=== PATIENT | female | born 1935 | race Caucasian/White ===

== ENCOUNTER 2016-03-07 05:09 | Emergency (ER) | payer OTHER ==
[~2016-03-07] VITALS: Ht 152.4 cm; Wt 70.4 kg
[~2016-03-07 05:09] MED LIST: 3-DAY VAGINAL C21 GM VG; ALEVE220 MG PO; AMBIEN5 MG PO; ANUSOL HC,ANUCO25 MG PR; ARTANE2 MG PO; ATENOLOL100 MG PO; ATENOLOL50 MG PO; Apresoline PO; Ascorbic Acid,Ester- PO; BUSPAR7.5 MG PO; CALTRATE 6001 TABLET PO; CALTRATE 600600 MG PO; CIPRO500 MG PO; COUMADIN,JANTO2.5 MG PO; CRANBERRY250 MG PO; CRANBERRY400 M1 PO; Calcium Carbonate,Ca PO; Ceftin PO; Colace PO; Coumadin dosing per PO; DIAZEPAM5 MG PO; DIOVAN HCT 11 TABLET PO; DONNATAL1 TABLET PO; DURAGESIC12 MCG TD; DURAGESIC25 MCG TD; Diovan HCT 160/12.5 PO; Dulcolax PR; EFFEXOR XR150 MG PO; ENABLEX15 MG PO; ENDOCET 5-3251 EACH PO; ENDOCET 7.5-321 EACH PO; ESTRING1 EACH VG; Effexor XR PO; FEMRING1 EACH VG; FLAGYL500 MG PO; FLEXERIL10 MG PO; FLEXERIL5 MG PO; FLONASE16 G1; FLONASE16 G1 BOTH NARES; FLONASE16 GM NS; FUROSEMIDE20 MG PO; Feosol PO; Flonase BOTH NARES; IMITREX NS; IMITREX100 MG PO; IMITREX20 MG NS; IMITREX5 MG NS; IMITREX50 MG PO; Imitrex SC; K-Dur PO; KLOR-CON20 MEQ PO; LEVO-T137 MCG PO; LEVOTHROID,SY0.15 MG PO; LEVOXYL150 MCG PO; LOPRESSOR50 MG PO; LORTAB 10/500 T1 TAB PO; LOVENOX40 MG/0.4 SC; Levothroid,Synthroid PO; METOPROLOL SUCC50 MG PO; MEVACOR40 MG PO; MYSOLINE250 MG PO; MYSOLINE50 MG; Magnesium PO; Milk Of Magnesia,MOM PO; NORVASC10 MG PO; Norvasc PO; OMEPRAZOLE20 M2 PO; OXYCODONE HCL15 MG PO; PANTOPRAZOLE SO40 MG PO; PEPCID40 MG PO; PERCOCET 10/1 TABLET PO; PERCOCET 5/31 TABLET PO; PERCOCET 7.51 TABLET PO; PHENERGAN12.5 M1 PO; POTASSIUM CHLO20 ME1 PO; PRIMIDONE250 MG PO; PROAIR HFA8.5 GM IH; PROTONIX40 MG PO; Proair HFA IH; REGLAN10 M1 PO; REGLAN10 MG PO; REMERON15 M2 PO; REQUIP0.25 MG PO; Reglan PO; SENOKOT S,PE1 TABLET PO; SIMVASTATIN20 MG PO; SKELAXIN400 M1 PO; SPIRIVA1 INHALATI IH; SUMATRIPTAN20 MG NS; SYMBICORT60 INHALAT IH; SYNTHROID150 MCG PO; Sodium Chloride PO; Symbicort 160-4.5 mc IH; TENORMIN100 M1 PO; TENORMIN100 MG PO; TENORMIN50 MG PO; TIZANIDINE HCL2 M1 PO; TIZANIDINE HCL2 MG PO; TRAMADOL HCL50 MG PO; Tenormin PO; Tylenol Regular Stre PO; VALIUM5 MG PO; VANCOMYCIN250 MG/2.5 PO; VENLAFAXINE HC150 MG PO; VITAMIN D2000 UNIT PO; VITAMIN D250000 UNIT PO; VITAMIN D31000 UNIT PO; VITAMIN D32000 UNIT PO; ZOFRAN ODT4 MG PO; ZOFRAN4 MG PO; Zocor PO; [UNRECOGNIZED DRUG - OTHER] NS
[2016-03-07 05:41] LABS: HEMATOCRIT 32.4 % (36.0-46.0); MCH 31.1 PG (29.0-34.0); MCHC 33.6 G/DL (30.0-36.0); MCV 92.6 FL (83-99); MEAN PLAT.VOLUME 9.1 uM^3 (9.5-12.4); PLATELET COUNT 215 K/uL (156-360); RBC DIS.WIDTH-CV 15.2 % (11.8-14.6); RBC DIS.WIDTH-SD 49.6 % (39-53); WHITE BLOOD COUNT 5.1 K/uL (4.1-10.2)
[2016-03-07 05:51] LABS: CHLORIDE 99 mEq/L (99-109); SODIUM 136 mEq/L (136-147)
[2016-03-07 05:53] LABS: GLUCOSE 93 mg/dL (70-99)
[2016-03-07 05:54] LABS: ANION GAP 11 MEQ/L (2-14)
[2016-03-07 05:57] LABS: GFR ESTIMATE (CALCULATED) 36 mL/min/
[2016-03-07 05:58] LABS: UREA NITROGEN (BUN) 20 mg/dL (9-23)
[2016-03-07 10:06] VITALS: BP 152/87
== END 2016-03-07 09:30 | disposition home or self-care (01) ==
LOC: EME → EDBD 05:09 → EME 05:09
PROVIDERS: Emergency Medicine
DX: S09.90XA Unspecified injury of head, initial encounter (principal); R10.9 Unspecified abdominal pain; R53.1 Weakness; W18.30XA Fall on same level, unspecified, initial encounter; N39.0 Urinary tract infection, site not specified; J44.1 Chronic obstructive pulmonary disease with (acute) exacerbation; E78.5 Hyperlipidemia, unspecified; E03.9 Hypothyroidism, unspecified; G43.909 Migraine, unspecified, not intractable, without status migrainosus; Z79.891 Long term (current) use of opiate analgesic; Z87.891 Personal history of nicotine dependence; Z96.653 Presence of artificial knee joint, bilateral
CPT/HCPCS: 70450; 74176; 80048; 81003; 85027; 87086; 99281; 99285; J7030

== ENCOUNTER 2016-03-14 13:25 | Inpatient (IN) | payer OTHER ==
[~2016-03-14] VITALS: Ht 182.9 cm; Wt 67.4 kg
[2016-03-14 15:15] LABS: HEMATOCRIT 33.1 % (36.0-46.0); MCH 32.7 PG (29.0-34.0); MCHC 33.8 G/DL (30.0-36.0); MCV 96.5 FL (83-99); MEAN PLAT.VOLUME 8.6 uM^3 (9.5-12.4); PLATELET COUNT 236 K/uL (156-360); RBC DIS.WIDTH-CV 15.6 % (11.8-14.6); RBC DIS.WIDTH-SD 51.4 % (39-53); RED BLOOD COUNT 3.43 M/uL (3.80-5.20); WHITE BLOOD COUNT 7.1 K/uL (4.1-10.2)
[2016-03-14 15:20] LABS: INTER. NORMALIZED RATIO 1.2; PTT 24.5 (25-32)
[2016-03-14 15:21] LABS: CHLORIDE 103 mEq/L (99-109); POTASSIUM 3.9 mEq/L (3.7-5.4); SODIUM 139 mEq/L (136-147)
[2016-03-14 15:23] LABS: GLUCOSE 118 mg/dL (70-99)
[2016-03-14 15:24] LABS: ANION GAP 11 MEQ/L (2-14)
[2016-03-14 15:27] LABS: GFR ESTIMATE (CALCULATED) 51 mL/min/
[2016-03-14 15:28] LABS: UREA NITROGEN (BUN) 22 mg/dL (9-23)
[2016-03-14 15:35] LABS: TROP-I INTERPRETATION POSITIVE
[2016-03-14 15:40] LABS: TROPONIN-I 1.04 ng/mL (0.0-0.30)
[2016-03-14] MEDS ORDERED: SPIRIVA1 INHALATI IH (17:15)
[2016-03-14] MEDS ORDERED: BACTRIM,SEPT1 TABLET PO (17:16)
[2016-03-14 18:12] LABS: ADD MIUA? YES; BILIRUBIN NEGATIVE; BLOOD NEGATIVE; COLOR YELLOW ((YELLOW)); GLUCOSE (STRIP) NEGATIVE; KETONES NEGATIVE; LEUKOCYTES TRACE; NITRITE NEGATIVE; PROTEIN (STRIP) NEGATIVE; SPECIFIC GRAVITY 1.013 (1.000-1.030); UROBILINOGEN 0.2 MG/DL (0.2-1.0)
[2016-03-14 18:36] LABS: BACTERIA NONE SEEN; CASTS NONE SEEN /LPF; CRYSTALS NONE SEEN; EPITHELIAL CELLS 1+; MUCUS NONE SEEN; PATHOLOGICAL CAST NONE SEEN; RED BLOOD CELLS 0-5 /HPF (0-5); SMALL ROUND CELL NONE SEEN; UCUL ADDED? NO; WHITE BLOOD CELLS 0-5 /HPF (0-5); YEAST-LIKE CELL NONE SEEN
[2016-03-14 22:57] LABS: TROP-I INTERPRETATION POSITIVE
[2016-03-14 22:58] LABS: TROPONIN-I 1.59 ng/mL (0.0-0.30)
[2016-03-15 04:59] LABS: TROP-I INTERPRETATION POSITIVE
[2016-03-15 05:01] LABS: TROPONIN-I 1.11 ng/mL (0.0-0.30)
[2016-03-15 06:36] LABS: HEMATOCRIT 34.6 % (36.0-46.0); MCH 31.3 PG (29.0-34.0); MCHC 33.2 G/DL (30.0-36.0); MEAN PLAT.VOLUME 8.7 uM^3 (9.5-12.4); PLATELET COUNT 267 K/uL (156-360); RBC DIS.WIDTH-CV 15.7 % (11.8-14.6); RBC DIS.WIDTH-SD 52.3 % (39-53); RED BLOOD COUNT 3.68 M/uL (3.80-5.20); WHITE BLOOD COUNT 6.3 K/uL (4.1-10.2)
[2016-03-15 06:47] LABS: CHLORIDE 108 mEq/L (99-109); POTASSIUM 4.3 mEq/L (3.7-5.4); SODIUM 141 mEq/L (136-147)
[2016-03-15 06:51] LABS: ANION GAP 11 MEQ/L (2-14)
[2016-03-15 06:52] LABS: TOTAL BILIRUBIN 0.3 mg/dL (0.0-1.0)
[2016-03-15 06:53] LABS: ALKALINE PHOSPHATASE 173 IU/L (3-129); GFR ESTIMATE (CALCULATED) > 59 mL/min/
[2016-03-15 06:54] LABS: UREA NITROGEN (BUN) 18 mg/dL (9-23)
[2016-03-15 06:57] LABS: GLUCOSE 84 mg/dL (70-99)
[2016-03-15 13:08] LABS: TROP-I INTERPRETATION POSITIVE
[2016-03-15 13:11] LABS: TROPONIN-I 0.79 ng/mL (0.0-0.30)
[2016-03-15 14:44] VITALS: BP 125/64
[2016-03-15 19:11] LABS: TROP-I INTERPRETATION INDETERMINATE; TROPONIN-I 0.52 ng/mL (0.0-0.30)
[2016-03-15 19:30] VITALS: BP 124/70
[2016-03-16] VITALS (7 sets, daily range): BP systolic 138–196; BP diastolic 70–96
[2016-03-16 11:02] LABS: ALKALINE PHOSPHATASE 163 IU/L (3-129); ANION GAP 16 MEQ/L (2-14); CHLORIDE 100 MEQ/L (99-109); GFR ESTIMATE (CALCULATED) > 59 mL/min/; SAMPLE HEMOLYSIS CHECK 0; SAMPLE ICTERIC CHECK 0; SAMPLE LIPEMIA CHECK 0; SODIUM 138 MEQ/L (136-147); TOTAL BILIRUBIN 0.6 MG/DL (0.0-1.0); UREA NITROGEN (BUN) 12 mg/dL (9-23)
[2016-03-16 11:03] LABS: GLUCOSE 140 mg/dL (70-99); POTASSIUM 3.3 MEQ/L (3.7-5.4)
[2016-03-17] VITALS (7 sets, daily range): BP systolic 134–190; BP diastolic 80–98
[2016-03-17 06:39] LABS: TROP-I INTERPRETATION NEGATIVE; TROPONIN-I 0.19 ng/mL (0.0-0.30)
[2016-03-17 06:59] LABS: ALKALINE PHOSPHATASE 158 IU/L (3-129); ANION GAP 14 MEQ/L (2-14); CHLORIDE 91 MEQ/L (99-109); GFR ESTIMATE (CALCULATED) > 59 mL/min/; GLUCOSE 135 mg/dL (70-99); LIPASE 10 U/L (1.0-51.0); POTASSIUM 3.1 MEQ/L (3.7-5.4); SAMPLE HEMOLYSIS CHECK 0; SAMPLE ICTERIC CHECK 0; SAMPLE LIPEMIA CHECK 0; SODIUM 134 MEQ/L (136-147); UREA NITROGEN (BUN) 9 mg/dL (9-23)
[2016-03-17 07:16] LABS: TOTAL BILIRUBIN 0.8 MG/DL (0.0-1.0)
[2016-03-17 07:48] LABS: EOSINOPHIL (%) 0 % (0-5); HEMATOCRIT 38.1 % (36.0-46.0); IMMATURE GRANULOCYTE (%) 0.2 % (0.0-0.7); LYMPHOCYTE COUNT 1.4 K/uL (1.0-2.8); MCH 31.4 PG (29.0-34.0); MCHC 34.6 G/DL (30.0-36.0); MCV 90.7 FL (83-99); MONOCYTE (%) 10.6 % (3-12); NEUTROPHIL COUNT 6.9 K/uL (1.8-6.4); PLATELET COUNT 233 K/uL (156-360); RBC DIS.WIDTH-CV 15.6 % (11.8-14.6); RBC DIS.WIDTH-SD 51.1 % (39-53)
[2016-03-17 07:51] LABS: WHITE BLOOD COUNT 9.3 K/uL (4.1-10.2)
[2016-03-17 09:21] LABS: MAGNESIUM 1.1 mg/dl (1.3-2.7)
[2016-03-17 18:58] LABS: ANION GAP 13 MEQ/L (2-14); CHLORIDE 95 MEQ/L (99-109); POTASSIUM 2.9 MEQ/L (3.7-5.4); SAMPLE HEMOLYSIS CHECK 0; SAMPLE ICTERIC CHECK 0; SAMPLE LIPEMIA CHECK 0; SODIUM 133 MEQ/L (136-147)
[2016-03-17 19:03] LABS: GFR ESTIMATE (CALCULATED) > 59 mL/min/; GLUCOSE 138 mg/dL (70-99); UREA NITROGEN (BUN) 12 mg/dL (9-23)
[2016-03-18 04:56] LABS: CHLORIDE 102 mEq/L (99-109); MAGNESIUM 1.4 mg/dL (1.3-2.7); SODIUM 136 mEq/L (136-147)
[2016-03-18 04:57] LABS: GLUCOSE 121 mg/dL (70-99); POTASSIUM 4.1 mEq/L (3.7-5.4)
[2016-03-18 04:59] LABS: ANION GAP 10 MEQ/L (2-14)
[2016-03-18 05:01] LABS: GFR ESTIMATE (CALCULATED) > 59 mL/min/
[2016-03-18 05:02] LABS: UREA NITROGEN (BUN) 11 mg/dL (9-23)
[2016-03-18 08:00] VITALS: BP 191/93
[2016-03-18 12:00] VITALS: BP 181/110
[2016-03-18 14:25] LABS: POINT-OF-CARE METER ID UU13113781
[2016-03-18 15:03] LABS: ANION GAP 12 MEQ/L (2-14); CHLORIDE 99 MEQ/L (99-109); GFR ESTIMATE (CALCULATED) > 59 mL/min/; GLUCOSE 149 mg/dL (70-99); SAMPLE HEMOLYSIS CHECK 0; SAMPLE ICTERIC CHECK 0; SAMPLE LIPEMIA CHECK 0; SODIUM 133 MEQ/L (136-147); UREA NITROGEN (BUN) 10 mg/dL (9-23)
[2016-03-18 15:06] LABS: TROP-I INTERPRETATION NEGATIVE; TROPONIN-I 0.09 ng/mL (0.0-0.30)
[2016-03-18 16:30] VITALS: BP 186/90
[2016-03-18 19:29] VITALS: BP 173/98
[2016-03-18 22:54] VITALS: BP 198/97
[2016-03-19] VITALS (9 sets, daily range): BP systolic 157–185; BP diastolic 84–105
[2016-03-19 06:39] LABS: ANION GAP 12 MEQ/L (2-14); CHLORIDE 93 MEQ/L (99-109); GFR ESTIMATE (CALCULATED) > 59 mL/min/; POTASSIUM 3.4 MEQ/L (3.7-5.4); SAMPLE HEMOLYSIS CHECK 0; SAMPLE ICTERIC CHECK 0; SAMPLE LIPEMIA CHECK 0; SODIUM 131 MEQ/L (136-147); UREA NITROGEN (BUN) 7 mg/dL (9-23)
[2016-03-19 06:42] LABS: GLUCOSE 108 mg/dL (70-99)
[2016-03-20] VITALS (7 sets, daily range): BP systolic 161–192; BP diastolic 84–103
[2016-03-20 07:04] LABS: ANION GAP 9 MEQ/L (2-14); CHLORIDE 92 MEQ/L (99-109); GFR ESTIMATE (CALCULATED) > 59 mL/min/; GLUCOSE 108 mg/dL (70-99); SAMPLE HEMOLYSIS CHECK 0; SAMPLE ICTERIC CHECK 0; SAMPLE LIPEMIA CHECK 0; SODIUM 127 MEQ/L (136-147); UREA NITROGEN (BUN) 12 mg/dL (9-23)
[2016-03-20 07:06] LABS: POTASSIUM 4.7 MEQ/L (3.7-5.4)
[2016-03-21 04:23] VITALS: BP 168/94
[2016-03-21 07:09] VITALS: BP 140/89
[2016-03-21 07:50] LABS: ANION GAP 11 MEQ/L (2-14); CHLORIDE 92 MEQ/L (99-109); GFR ESTIMATE (CALCULATED) > 59 mL/min/; GLUCOSE 101 mg/dL (70-99); POTASSIUM 4.6 MEQ/L (3.7-5.4); SAMPLE HEMOLYSIS CHECK 0; SAMPLE ICTERIC CHECK 0; SAMPLE LIPEMIA CHECK 0; SODIUM 125 MEQ/L (136-147); UREA NITROGEN (BUN) 16 mg/dL (9-23)
[2016-03-21 11:53] VITALS: BP 135/71
[2016-03-21 15:33] VITALS: BP 167/84
[2016-03-21 20:37] VITALS: BP 158/86
[2016-03-21 23:59] VITALS: BP 169/97
[2016-03-22 04:24] VITALS: BP 179/93
[2016-03-22 06:00] VITALS: BP 153/81
[2016-03-22 07:23] LABS: ANION GAP 11 MEQ/L (2-14); CHLORIDE 92 MEQ/L (99-109); GFR ESTIMATE (CALCULATED) 57 mL/min/; GLUCOSE 104 mg/dL (70-99); POTASSIUM 4.9 MEQ/L (3.7-5.4); SAMPLE HEMOLYSIS CHECK 0; SAMPLE ICTERIC CHECK 0; SAMPLE LIPEMIA CHECK 0; SODIUM 127 MEQ/L (136-147); UREA NITROGEN (BUN) 22 mg/dL (9-23)
[2016-03-22 08:07] VITALS: BP 161/89
[2016-03-22 11:30] VITALS: BP 137/82
[2016-03-22 16:10] VITALS: BP 144/82
[2016-03-22 20:34] VITALS: BP 158/86
[2016-03-23] VITALS (7 sets, daily range): BP systolic 128–188; BP diastolic 73–100
[2016-03-23 07:05] LABS: ANION GAP 9 MEQ/L (2-14); CHLORIDE 93 MEQ/L (99-109); POTASSIUM 4.5 MEQ/L (3.7-5.4); SAMPLE HEMOLYSIS CHECK 0; SAMPLE ICTERIC CHECK 0; SAMPLE LIPEMIA CHECK 0; SODIUM 129 MEQ/L (136-147)
[2016-03-23 07:11] LABS: GFR ESTIMATE (CALCULATED) 57 mL/min/; GLUCOSE 94 mg/dL (70-99); UREA NITROGEN (BUN) 22 mg/dL (9-23); URIC ACID 8.7 mg/dL (3.1-9.2)
[2016-03-24 03:37] VITALS: BP 101/62
[2016-03-24 06:45] LABS: ANION GAP 10 MEQ/L (2-14); CHLORIDE 95 MEQ/L (99-109); GFR ESTIMATE (CALCULATED) 42 mL/min/; GLUCOSE 107 mg/dL (70-99); POTASSIUM 4.7 MEQ/L (3.7-5.4); SAMPLE HEMOLYSIS CHECK 0; SAMPLE ICTERIC CHECK 0; SAMPLE LIPEMIA CHECK 0; SODIUM 130 MEQ/L (136-147); UREA NITROGEN (BUN) 22 mg/dL (9-23)
[2016-03-24 07:50] VITALS: BP 106/57
[2016-03-24] MEDS ORDERED: CARDIZEM CD120 MG PO (08:13)
[2016-03-24] MEDS ORDERED: TRAMADOL HCL50 MG PO (08:13)
[2016-03-24] MEDS ORDERED: LOPRESSOR100 M1 PO (08:13)
[2016-03-24] MEDS ORDERED: CLOPIDOGREL75 MG PO (08:13)
[2016-03-24] MEDS ORDERED: K-DUR20 MEQ PO (08:13)
[2016-03-24] MEDS ORDERED: VALSARTAN160 MG PO (08:59)
== END 2016-03-24 10:57 | DRG 314 ==
LOC: EME 13:25 → EDOF 17:15 → 4EAST 17:15
PROVIDERS: Emergency Medicine; Hospitalist; Internal Medicine; Internal Medicine Cardiovascular Disease; Physician Assistant Medical
PROC: 02H633Z Insertion of Infusion Device into Right Atrium, Percutaneous Approach (ICD-10-PCS; principal; 2016-03-14)
DX: I95.9 Hypotension, unspecified (principal); I24.8 Other forms of acute ischemic heart disease; R57.1 Hypovolemic shock; R11.2 Nausea with vomiting, unspecified; I47.1 Supraventricular tachycardia; I44.1 Atrioventricular block, second degree; E87.1 Hypo-osmolality and hyponatremia; E87.6 Hypokalemia; E83.42 Hypomagnesemia; I10 Essential (primary) hypertension; E78.5 Hyperlipidemia, unspecified; J44.9 Chronic obstructive pulmonary disease, unspecified; E89.0 Postprocedural hypothyroidism; G89.4 Chronic pain syndrome; F41.9 Anxiety disorder, unspecified; F32.9 Major depressive disorder, single episode, unspecified; K29.70 Gastritis, unspecified, without bleeding; R73.9 Hyperglycemia, unspecified; D64.9 Anemia, unspecified; Z88.6 Allergy status to analgesic agent; Z86.718 Personal history of other venous thrombosis and embolism; Z87.891 Personal history of nicotine dependence; Z79.891 Long term (current) use of opiate analgesic; Z96.659 Presence of unspecified artificial knee joint
CPT/HCPCS: 71010; 74000; 74176; 78452; 80048; 80048 91; 80053; 81003; 82948; 83605; 83690; 83735; 83880; 83930; 83935; 84300; 84484; 84550; 85025; 85027; 85610; 85730; 87040; 93005; 93017; 94640; 94640 76; 94799; 99202; 99281; 99285; A9500; J0153; J0692; J1644; J2405; J2785; J3370; J7030; J7050

== ENCOUNTER 2016-03-28 13:59 | Emergency (ER) | payer OTHER ==
[~2016-03-28] VITALS: Ht 152.4 cm; Wt 62.9 kg
[~2016-03-28 13:59] MED LIST changes: +BACTRIM,SEPT1 TABLET PO; +CARDIZEM CD120 MG PO; +CLOPIDOGREL75 MG PO; +K-DUR20 MEQ PO; +LOPRESSOR100 M1 PO; +VALSARTAN160 MG PO
[2016-03-28 15:52] LABS: BASOPHIL COUNT 0.1 K/uL (0-0.1); EOSINOPHIL (%) 3.1 % (0-5); EOSINOPHIL COUNT 0.2 K/uL (0-0.3); HEMATOCRIT 34.8 % (36.0-46.0); IMMATURE GRANULOCYTE (%) 0.3 % (0.0-0.7); IMMATURE GRANULOCYTE COUNT 0.2 K/uL; LYMPHOCYTE COUNT 2.2 K/uL (1.0-2.8); MCH 31.7 PG (29.0-34.0); MCHC 34.5 G/DL (30.0-36.0); MCV 92.1 FL (83-99); MEAN PLAT.VOLUME 8.3 uM^3 (9.5-12.4); MONOCYTE (%) 11.2 % (3-12); MONOCYTE COUNT 0.7 K/uL (0-0.8); NEUTROPHIL (%) 46.6 % (45-76); NEUTROPHIL COUNT 2.7 K/uL (1.8-6.4); PLATELET COUNT 276 K/uL (156-360); RBC DIS.WIDTH-CV 15.9 % (11.8-14.6); RBC DIS.WIDTH-SD 51.4 % (39-53); RED BLOOD COUNT 3.78 M/uL (3.80-5.20)
[2016-03-28 15:59] LABS: WHITE BLOOD COUNT 5.8 K/uL (4.1-10.2)
[2016-03-28 16:04] LABS: CHLORIDE 102 mEq/L (99-109); POTASSIUM 4.6 mEq/L (3.7-5.4); SODIUM 134 mEq/L (136-147)
[2016-03-28 16:07] LABS: GLUCOSE 102 mg/dL (70-99)
[2016-03-28 16:08] LABS: ANION GAP 7 MEQ/L (2-14); TOTAL BILIRUBIN 0.2 mg/dL (0.0-1.0)
[2016-03-28 16:10] LABS: ALKALINE PHOSPHATASE 117 IU/L (3-129); GFR ESTIMATE (CALCULATED) 36 mL/min/
[2016-03-28 16:11] LABS: UREA NITROGEN (BUN) 26 mg/dL (9-23)
[2016-03-28 16:45] LABS: ADD MIUA? NO; BILIRUBIN NEGATIVE; BLOOD NEGATIVE; COLOR YELLOW ((YELLOW)); GLUCOSE (STRIP) NEGATIVE; KETONES NEGATIVE; LEUKOCYTES NEGATIVE; NITRITE NEGATIVE; PH, URINE 5.5 (5-8); PROTEIN (STRIP) NEGATIVE; SPECIFIC GRAVITY 1.017 (1.000-1.030); UCUL ADDED? NO; UROBILINOGEN 0.2 MG/DL (0.2-1.0)
[2016-03-28 18:03] VITALS: BP 122/73
== END 2016-03-28 18:03 ==
LOC: EME 13:59
PROVIDERS: Emergency Medicine
DX: E86.0 Dehydration (principal); W06.XXXA Fall from bed, initial encounter; Y92.122 Bedroom in nursing home as the place of occurrence of the external cause; G89.29 Other chronic pain; J44.9 Chronic obstructive pulmonary disease, unspecified; E78.5 Hyperlipidemia, unspecified; K21.9 Gastro-esophageal reflux disease without esophagitis; E03.9 Hypothyroidism, unspecified; Z85.850 Personal history of malignant neoplasm of thyroid
CPT/HCPCS: 71010; 80053; 81003; 83605; 85025; 99281; 99285; J7040

== ENCOUNTER 2016-04-24 10:46 | Emergency (ER) | payer OTHER ==
[~2016-04-24] VITALS: Ht 152.4 cm; Wt 68.2 kg
[2016-04-24 12:27] LABS: ADD MIUA? YES; BILIRUBIN NEGATIVE; BLOOD NEGATIVE; COLOR YELLOW ((YELLOW)); GLUCOSE (STRIP) NEGATIVE; KETONES 5; LEUKOCYTES SMALL; NITRITE NEGATIVE; PROTEIN (STRIP) NEGATIVE; SPECIFIC GRAVITY 1.015 (1.000-1.030); UROBILINOGEN 0.2 MG/DL (0.2-1.0)
[2016-04-24 12:33] LABS: CHLORIDE 99 mEq/L (99-109); POTASSIUM 4.6 mEq/L (3.7-5.4); SODIUM 140 mEq/L (136-147)
[2016-04-24 12:35] LABS: BACTERIA RARE /HPF; EPITHELIAL CELLS 2+ /HPF; HYALINE CASTS 20-30 /LPF; MUCUS TRACE /LPF; RED BLOOD CELLS 0-5 /HPF (0-5); UCUL ADDED? NO; WHITE BLOOD CELLS 0-5 /HPF (0-5)
[2016-04-24 12:35] LABS: GLUCOSE 119 mg/dL (70-99)
[2016-04-24 12:37] LABS: ANION GAP 13 MEQ/L (2-14); EOSINOPHIL (%) 0.2 % (0-5); HEMATOCRIT 39.7 % (36.0-46.0); IMMATURE GRANULOCYTE (%) 0.2 % (0.0-0.7); IMMATURE GRANULOCYTE COUNT 0.2 K/uL; LYMPHOCYTE COUNT 1.5 K/uL (1.0-2.8); MCH 31.3 PG (29.0-34.0); MEAN PLAT.VOLUME 8.8 uM^3 (9.5-12.4); MONOCYTE COUNT 0.9 K/uL (0-0.8); NEUTROPHIL (%) 71.1 % (45-76); RBC DIS.WIDTH-CV 15.2 % (11.8-14.6); RBC DIS.WIDTH-SD 48.9 % (39-53); RED BLOOD COUNT 4.31 M/uL (3.80-5.20); TOTAL BILIRUBIN 0.3 mg/dL (0.0-1.0)
[2016-04-24 12:38] LABS: MCV 92.1 FL (83-99); PLATELET COUNT 332 K/uL (156-360); WHITE BLOOD COUNT 8.5 K/uL (4.1-10.2)
[2016-04-24 12:39] LABS: ALKALINE PHOSPHATASE 165 IU/L (3-129); GFR ESTIMATE (CALCULATED) 51 mL/min/
[2016-04-24 12:40] LABS: UREA NITROGEN (BUN) 18 mg/dL (9-23)
[2016-04-24 12:42] LABS: CREATINE KINASE 17 IU/L (1-294); TOTAL CK 17 IU/L (1-294)
[2016-04-24 12:45] LABS: TROP-I INTERPRETATION NEGATIVE; TROPONIN-I 0.07 ng/mL (0.0-0.30)
[2016-04-24 12:53] LABS: CK-MB 1.6 ng/mL (0.0-4.9)
[2016-04-24 17:01] LABS: TROP-I INTERPRETATION NEGATIVE; TROPONIN-I 0.15 ng/mL (0.0-0.30)
[2016-04-24 18:39] VITALS: BP 118/74
== END 2016-04-24 18:30 ==
LOC: EME → EDBD 10:46 → EME 18:30
PROVIDERS: Emergency Medicine
DX: R00.0 Tachycardia, unspecified (principal); Z87.820 Personal history of traumatic brain injury; R42 Dizziness and giddiness; R51 Headache; Z91.81 History of falling; G89.29 Other chronic pain; Z79.891 Long term (current) use of opiate analgesic; E03.9 Hypothyroidism, unspecified; J44.9 Chronic obstructive pulmonary disease, unspecified; Z87.891 Personal history of nicotine dependence
CPT/HCPCS: 70450; 71010; 80053; 81003; 82550; 82553; 84484; 85025; 93005; 99281; 99285

== ENCOUNTER 2016-05-06 01:58 | Inpatient (IN) | payer OTHER ==
[~2016-05-06] VITALS: Ht 152.4 cm; Wt 60.0 kg
[2016-05-06 02:53] LABS: CHLORIDE 102 mEq/L (99-109); POTASSIUM 4.1 mEq/L (3.7-5.4); SODIUM 140 mEq/L (136-147)
[2016-05-06 02:55] LABS: GLUCOSE 143 mg/dL (70-99)
[2016-05-06 02:56] LABS: ANION GAP 15 MEQ/L (2-14)
[2016-05-06 02:59] LABS: GFR ESTIMATE (CALCULATED) 24 mL/min/
[2016-05-06 03:00] LABS: UREA NITROGEN (BUN) 26 mg/dL (9-23)
[2016-05-06 03:06] LABS: TROP-I INTERPRETATION NEGATIVE; TROPONIN-I 0.04 ng/mL (0.0-0.30)
[2016-05-06 03:26] LABS: HEMATOCRIT 35.4 % (36.0-46.0); MCH 32.1 PG (29.0-34.0); MCHC 33.3 G/DL (30.0-36.0); MCV 96.2 FL (83-99); MEAN PLAT.VOLUME 9.3 uM^3 (9.5-12.4); PLATELET COUNT 247 K/uL (156-360); RBC DIS.WIDTH-CV 15.4 % (11.8-14.6); RBC DIS.WIDTH-SD 54.9 % (39-53); RED BLOOD COUNT 3.68 M/uL (3.80-5.20); WHITE BLOOD COUNT 7.5 K/uL (4.1-10.2)
[2016-05-06 04:50] VITALS: BP 138/81
[2016-05-06 05:01] VITALS: BP 138/81
[2016-05-06 07:49] VITALS: BP 132/83
[2016-05-06 17:22] VITALS: BP 191/99
[2016-05-06 23:15] VITALS: BP 145/86; BP 169/90
[2016-05-07 07:12] VITALS: BP 114/68
[2016-05-07 07:21] LABS: ANION GAP 9 MEQ/L (2-14); CHLORIDE 101 MEQ/L (99-109); GFR ESTIMATE (CALCULATED) 46 mL/min/; POTASSIUM 4.3 MEQ/L (3.7-5.4); SAMPLE HEMOLYSIS CHECK 0; SAMPLE ICTERIC CHECK 0; SAMPLE LIPEMIA CHECK 0; SODIUM 133 MEQ/L (136-147); UREA NITROGEN (BUN) 20 mg/dL (9-23)
[2016-05-07 07:35] LABS: GLUCOSE 72 mg/dL (70-99)
[2016-05-07 13:45] VITALS: BP 108/56
[2016-05-07 16:31] LABS: ADD MIUA? YES; BILIRUBIN NEGATIVE; BLOOD SMALL; COLOR YELLOW ((YELLOW)); GLUCOSE (STRIP) NEGATIVE; KETONES NEGATIVE; LEUKOCYTES SMALL; NITRITE POSITIVE; PROTEIN (STRIP) NEGATIVE; SPECIFIC GRAVITY 1.018 (1.000-1.030); UROBILINOGEN 0.2 MG/DL (0.2-1.0)
[2016-05-07 16:37] LABS: BACTERIA 3+ /HPF; EPITHELIAL CELLS 1+ /HPF; MUCUS TRACE /LPF; RED BLOOD CELLS 0-5 /HPF (0-5); UCUL ADDED? YES; WHITE BLOOD CELLS 20-30 /HPF (0-5)
[2016-05-07 23:37] VITALS: BP 118/69
[2016-05-08 06:45] VITALS: BP 124/60
[2016-05-08 16:00] VITALS: BP 143/86
[2016-05-08 23:35] VITALS: BP 90/50
[2016-05-09 06:43] VITALS: BP 141/76
[2016-05-09 15:01] VITALS: BP 104/57
[2016-05-09] MEDS ORDERED: OXYCODONE HCL10 MG PO (19:01)
[2016-05-09] MEDS ORDERED: CARDIZEM120 MG PO (19:03)
[2016-05-09] MEDS ORDERED: PROMETHAZINE HC25 M1 PO (19:04)
[2016-05-09] MEDS ORDERED: MYSOLINE250 MG PO (19:05)
[2016-05-09] MEDS ORDERED: LOPRESSOR50 MG PO (19:07)
[2016-05-09] MEDS ORDERED: PANTOPRAZOLE SO40 MG PO (19:08)
[2016-05-09] MEDS ORDERED: LEVOTHYROXINE150 MCG PO (19:08)
[2016-05-09] MEDS ORDERED: POTASSIUM CHLO20 ME1 PO (19:08)
[2016-05-09] MEDS ORDERED: CLOPIDOGREL75 MG PO (19:09)
[2016-05-09] MEDS ORDERED: PROAIR HFA8.5 GM IH (19:09)
[2016-05-09] MEDS ORDERED: SPIRIVA1 INHALATI IH (19:10)
[2016-05-09] MEDS ORDERED: VENLAFAXINE HC150 M1 PO (19:10)
[2016-05-09 23:25] VITALS: BP 159/71
[2016-05-10 07:42] VITALS: BP 130/66
[2016-05-10 15:52] VITALS: BP 133/75
[2016-05-10 23:33] VITALS: BP 138/77
[2016-05-11 07:36] VITALS: BP 151/77
[2016-05-11] MEDS ORDERED: SYNTHROID137 MCG PO (12:11)
[2016-05-11] MEDS ORDERED: CARDIZEM CD120 MG PO (12:11)
[2016-05-11] MEDS ORDERED: LOPRESSOR25 MG PO (12:11)
[2016-05-11] MEDS ORDERED: OXYCODONE HCL10 MG PO ×2 (12:11→12:15)
== END 2016-05-11 15:21 | DRG 309 ==
LOC: EME → EDBD 01:58 → EME 01:58 → EDOF 03:33 → 5EAST 03:33
PROVIDERS: Emergency Medicine; Internal Medicine
DX: I47.1 Supraventricular tachycardia (principal); N17.9 Acute kidney failure, unspecified; E87.1 Hypo-osmolality and hyponatremia; M47.16 Other spondylosis with myelopathy, lumbar region; R29.6 Repeated falls; E03.9 Hypothyroidism, unspecified; G89.29 Other chronic pain; K21.9 Gastro-esophageal reflux disease without esophagitis; M54.9 Dorsalgia, unspecified; R53.1 Weakness; E86.9 Volume depletion, unspecified; I10 Essential (primary) hypertension; J44.9 Chronic obstructive pulmonary disease, unspecified; F32.9 Major depressive disorder, single episode, unspecified; R25.1 Tremor, unspecified; R82.71 Bacteriuria; Z96.653 Presence of artificial knee joint, bilateral; Z86.69 Personal history of other diseases of the nervous system and sense organs; Z88.6 Allergy status to analgesic agent; Z88.8 Allergy status to other drugs, medicaments and biological substances; Z87.891 Personal history of nicotine dependence; Z85.850 Personal history of malignant neoplasm of thyroid
CPT/HCPCS: 70450; 80048; 81003; 83880; 84484; 85027; 87077; 87086; 87186; 93005; 94640; 94640 76; 97530 GP; 99202; 99281; 99285; J1650; J2405

== ENCOUNTER 2016-06-27 22:35 | Inpatient (IN) | payer OTHER ==
[~2016-06-27] VITALS: Ht 152.4 cm; Wt 59.6 kg
[~2016-06-27 22:35] MED LIST changes: +CARDIZEM120 MG PO; +LEVOTHYROXINE150 MCG PO; +LOPRESSOR25 MG PO; +OXYCODONE HCL10 MG PO; +PROMETHAZINE HC25 M1 PO; +SYNTHROID137 MCG PO; +VENLAFAXINE HC150 M1 PO
[2016-06-28 00:58] LABS: INTER. NORMALIZED RATIO 1.1; PROTHROMBIN TIME 10.7 (9.2-11.2); PTT 24.9 (25-32)
[2016-06-28 00:59] LABS: CHLORIDE 104 mEq/L (99-109); POTASSIUM 3.6 mEq/L (3.7-5.4); SODIUM 138 mEq/L (136-147)
[2016-06-28 01:01] LABS: GLUCOSE 101 mg/dL (70-99)
[2016-06-28 01:02] LABS: ANION GAP 8 MEQ/L (2-14); HEMATOCRIT 30.3 % (36.0-46.0); MCH 34.1 PG (29.0-34.0); MCV 97.4 FL (83-99); MEAN PLAT.VOLUME 9.7 uM^3 (9.5-12.4); PLATELET COUNT 226 K/uL (156-360); RBC DIS.WIDTH-SD 49.2 % (39-53); RED BLOOD COUNT 3.11 M/uL (3.80-5.20); WHITE BLOOD COUNT 7.1 K/uL (4.1-10.2)
[2016-06-28 01:03] LABS: TOTAL BILIRUBIN 0.5 mg/dL (0.0-1.0)
[2016-06-28 01:04] LABS: ALKALINE PHOSPHATASE 127 IU/L (3-129)
[2016-06-28 01:05] LABS: GFR ESTIMATE (CALCULATED) > 59 mL/min/
[2016-06-28 01:06] LABS: UREA NITROGEN (BUN) 11 mg/dL (9-23)
[2016-06-28 01:08] LABS: LIPASE 25 U/L (1.0-51.0); URIC ACID 10.2 mg/dL (3.1-9.2)
[2016-06-28 01:09] LABS: TROP-I INTERPRETATION NEGATIVE; TROPONIN-I 0.01 ng/mL (0.0-0.30)
[2016-06-28 01:47] LABS: C-REACTIVE PROTEIN 64.5 MG/L (0-10)
[2016-06-28 02:02] LABS: ERTH.SED.RATE 6 MM/HR (0-30)
[2016-06-28 02:53] LABS: ADD MIUA? YES; BILIRUBIN NEGATIVE; BLOOD NEGATIVE; COLOR YELLOW ((YELLOW)); GLUCOSE (STRIP) NEGATIVE; KETONES NEGATIVE; LEUKOCYTES LARGE; NITRITE NEGATIVE; PROTEIN (STRIP) 30; SPECIFIC GRAVITY 1.015 (1.000-1.030); UROBILINOGEN 0.2 MG/DL (0.2-1.0)
[2016-06-28 03:04] LABS: BACTERIA RARE /HPF; EPITHELIAL CELLS 2+ /HPF; MUCUS NONE SEEN /LPF; RED BLOOD CELLS 0-5 /HPF (0-5); UCUL ADDED? NO
[2016-06-28 05:15] VITALS: BP 144/67
[2016-06-28 06:53] VITALS: BP 158/82
[2016-06-28] MEDS ORDERED: PRIMIDONE250 MG PO (11:03)
[2016-06-28] MEDS ORDERED: PANTOPRAZOLE SO40 MG PO (11:03)
[2016-06-28] MEDS ORDERED: PROAIR HFA8.5 GM IH (11:04)
[2016-06-28] MEDS ORDERED: VENLAFAXINE HC150 M1 PO (11:04)
[2016-06-28] MEDS ORDERED: CLOPIDOGREL75 MG PO (11:04)
[2016-06-28] MEDS ORDERED: SPIRIVA1 INHALATI IH (11:04)
[2016-06-28] MEDS ORDERED: LOPRESSOR50 MG PO (11:06)
[2016-06-28] MEDS ORDERED: CARDIZEM CD,CA120 MG PO (11:06)
[2016-06-28] MEDS ORDERED: LEVO-T175 MCG PO (11:06)
[2016-06-28] MEDS ORDERED: OXYCODONE HCL10 MG PO ×2 (11:07→11:16)
[2016-06-28] MEDS ORDERED: ZOFRAN4 MG PO (11:09)
[2016-06-28] MEDS ORDERED: ICY HOT CREAM35.4 G1 TP (11:11)
[2016-06-28] MEDS ORDERED: DIAZEPAM5 MG PO (11:15)
[2016-06-28] MEDS ORDERED: MICRO-K10 ME2 PO (11:16)
[2016-06-28] MEDS ORDERED: LASIX20 MG PO (11:16)
[2016-06-28] MEDS ORDERED: DURAGESIC25 MCG TD (11:18)
[2016-06-28 11:57] VITALS: BP 177/97; BP 184/89
[2016-06-28 12:12] LABS: POINT-OF-CARE METER ID UU14162508
[2016-06-28 15:27] VITALS: BP 183/88
[2016-06-28 19:38] VITALS: BP 155/84
[2016-06-29 06:55] VITALS: BP 155/90
[2016-06-29 12:25] VITALS: BP 142/74
[2016-06-29 15:15] VITALS: BP 136/75
[2016-06-29 21:52] LABS: POINT-OF-CARE METER ID UU14162508
[2016-06-29 23:05] VITALS: BP 161/87
[2016-06-30 06:47] LABS: POINT-OF-CARE METER ID UU14162508
[2016-06-30 07:57] VITALS: BP 168/81
[2016-06-30 11:23] VITALS: BP 142/68
[2016-06-30 11:52] LABS: POINT-OF-CARE METER ID UU14162508
[2016-06-30 16:00] VITALS: BP 140/78
[2016-06-30 16:44] LABS: POINT-OF-CARE METER ID UU14162508
[2016-06-30 22:17] LABS: POINT-OF-CARE METER ID UU14162508
[2016-07-01 00:03] VITALS: BP 138/78
[2016-07-01 06:20] LABS: POINT-OF-CARE METER ID UU14162508
[2016-07-01 07:58] VITALS: BP 141/79
[2016-07-01] MEDS ORDERED: AMOX TR-K CLV1 EAC4 PO (08:16)
[2016-07-01 12:17] VITALS: BP 148/84
[2016-07-01 12:26] LABS: POINT-OF-CARE METER ID UU14162508
== END 2016-07-01 16:02 | disposition home or self-care (01) | DRG 602 ==
LOC: EME 22:35 → 2EAST 06-28 03:32 → EDOF 06-28 03:32 → 2EAST 06-28 04:50
PROVIDERS: Emergency Medicine; Internal Medicine
DX: L03.116 Cellulitis of left lower limb (principal); J18.9 Pneumonia, unspecified organism; D64.9 Anemia, unspecified; D72.829 Elevated white blood cell count, unspecified; N30.90 Cystitis, unspecified without hematuria; M79.605 Pain in left leg; J44.9 Chronic obstructive pulmonary disease, unspecified; I10 Essential (primary) hypertension; F32.9 Major depressive disorder, single episode, unspecified; E03.9 Hypothyroidism, unspecified; Z87.891 Personal history of nicotine dependence
CPT/HCPCS: 71020; 73630; 80053; 81003; 82948; 83605; 83690; 84484; 84550; 85027; 85610; 85651; 85730; 86140; 87040; 93005; 94640; 94640 76; 99202; 99281; 99285; J0690; J1650; J1815; J1885; J2543; J7030; J7050

== ENCOUNTER 2016-08-30 01:05 | Inpatient (IN) | payer OTHER ==
[~2016-08-30] VITALS: Ht 152.4 cm; Wt 63.8 kg
[~2016-08-30 01:05] MED LIST changes: +AMOX TR-K CLV1 EAC4 PO; +CARDIZEM CD,CA120 MG PO; +ICY HOT CREAM35.4 G1 TP; +LASIX20 MG PO; +LEVO-T175 MCG PO; +MICRO-K10 ME2 PO
[2016-08-30 01:46] LABS: ADD MIUA? YES; BILIRUBIN NEGATIVE; BLOOD NEGATIVE; COLOR YELLOW ((YELLOW)); GLUCOSE (STRIP) NEGATIVE; KETONES 5; LEUKOCYTES SMALL; NITRITE NEGATIVE; PROTEIN (STRIP) 30; UROBILINOGEN 0.2 MG/DL (0.2-1.0)
[2016-08-30 01:57] LABS: CHLORIDE 101 mEq/L (99-109); POTASSIUM 2.7 mEq/L (3.7-5.4); SODIUM 140 mEq/L (136-147)
[2016-08-30 01:59] LABS: GLUCOSE 158 mg/dL (70-99)
[2016-08-30 02:01] LABS: ANION GAP 13 MEQ/L (2-14); TOTAL BILIRUBIN 0.4 mg/dL (0.0-1.0)
[2016-08-30 02:03] LABS: ALKALINE PHOSPHATASE 170 IU/L (3-129); GFR ESTIMATE (CALCULATED) > 59 mL/min/
[2016-08-30 02:04] LABS: UREA NITROGEN (BUN) 10 mg/dL (9-23)
[2016-08-30 02:07] LABS: LIPASE 35 U/L (1.0-51.0)
[2016-08-30 02:11] LABS: BACTERIA NONE SEEN /HPF; EPITHELIAL CELLS 2+ /HPF; MUCUS NONE SEEN /LPF; RED BLOOD CELLS 0-5 /HPF (0-5); UCUL ADDED? NO; WHITE BLOOD CELLS 0-5 /HPF (0-5)
[2016-08-30 02:16] LABS: EOSINOPHIL COUNT 0.1 K/uL (0-0.3); IMMATURE GRANULOCYTE (%) 0.3 % (0.0-0.7); INSTRUMENT ABS NEUTROPHIL CT 4.7 K/uL; LYMPHOCYTE COUNT 1.4 K/uL (1.0-2.8); MCH 33.2 PG (29.0-34.0); MCHC 36.9 G/DL (30.0-36.0); MCV 90.1 FL (83-99); MEAN PLAT.VOLUME 9.9 uM^3 (9.5-12.4); MONOCYTE (%) 9.2 % (3-12); MONOCYTE COUNT 0.6 K/uL (0-0.8); NEUTROPHIL (%) 68.2 % (45-76); NEUTROPHIL COUNT 4.7 K/uL (1.8-6.4); PLATELET COUNT 241 K/uL (156-360); RBC DIS.WIDTH-CV 19.8 % (11.8-14.6); RBC DIS.WIDTH-SD 44.2 % (39-53); RED BLOOD COUNT 3.22 M/uL (3.80-5.20); WHITE BLOOD COUNT 6.8 K/uL (4.1-10.2)
[2016-08-30 09:36] LABS: CHLORIDE 99 mEq/L (99-109); POTASSIUM 3.4 mEq/L (3.7-5.4); SODIUM 139 mEq/L (136-147)
[2016-08-30 09:37] LABS: GLUCOSE 173 mg/dL (70-99)
[2016-08-30 09:39] LABS: ANION GAP 20 MEQ/L (2-14)
[2016-08-30 09:41] LABS: GFR ESTIMATE (CALCULATED) > 59 mL/min/
[2016-08-30 09:42] LABS: UREA NITROGEN (BUN) 8 mg/dL (9-23)
[2016-08-30 10:10] VITALS: BP 181/97
[2016-08-30 10:15] VITALS: BP 181/97
[2016-08-30 12:04] VITALS: BP 170/88
[2016-08-30] MEDS ORDERED: LASIX40 MG PO (15:41)
[2016-08-30 16:14] VITALS: BP 175/78
[2016-08-30 19:00] VITALS: BP 177/81
[2016-08-30 22:45] VITALS: BP 186/92
[2016-08-31] VITALS (7 sets, daily range): BP systolic 162–193; BP diastolic 74–93
[2016-08-31 05:58] LABS: ANION GAP 11 MEQ/L (2-14); CHLORIDE 96 MEQ/L (99-109); GFR ESTIMATE (CALCULATED) > 59 mL/min/; POTASSIUM 3.4 MEQ/L (3.7-5.4); SAMPLE HEMOLYSIS CHECK 0; SAMPLE ICTERIC CHECK 0; SAMPLE LIPEMIA CHECK 0; SODIUM 134 MEQ/L (136-147); UREA NITROGEN (BUN) 9 mg/dL (9-23)
[2016-08-31 06:33] LABS: GLUCOSE 113 mg/dL (70-99)
[2016-08-31 07:00] LABS: MCH 30.4 PG (29.0-34.0); MCHC 34.7 G/DL (30.0-36.0); MCV 87.7 FL (83-99); MEAN PLAT.VOLUME 9.9 uM^3 (9.5-12.4); PLATELET COUNT 252 K/uL (156-360); RBC DIS.WIDTH-SD 44.8 % (39-53); RED BLOOD COUNT 3.65 M/uL (3.80-5.20); WHITE BLOOD COUNT 8.8 K/uL (4.1-10.2)
[2016-09-01 07:20] VITALS: BP 125/68
[2016-09-01 08:01] LABS: HEMATOCRIT 36.1 % (36.0-46.0); MCH 26.8 PG (29.0-34.0); MCHC 33.2 G/DL (30.0-36.0); MEAN PLAT.VOLUME 9.8 uM^3 (9.5-12.4); PLATELET COUNT 245 K/uL (156-360); RBC DIS.WIDTH-CV 14.6 % (11.8-14.6); RBC DIS.WIDTH-SD 42.3 % (39-53); WHITE BLOOD COUNT 7.1 K/uL (4.1-10.2)
[2016-09-01 08:02] LABS: ALKALINE PHOSPHATASE 154 IU/L (3-129); ANION GAP 11 MEQ/L (2-14); CHLORIDE 95 MEQ/L (99-109); GFR ESTIMATE (CALCULATED) > 59 mL/min/; GLUCOSE 116 mg/dL (70-99); MCV 80.6 FL (83-99); POTASSIUM 4.1 MEQ/L (3.7-5.4); RED BLOOD COUNT 4.48 M/uL (3.80-5.20); SAMPLE HEMOLYSIS CHECK 0; SAMPLE ICTERIC CHECK 0; SAMPLE LIPEMIA CHECK 0; SODIUM 130 MEQ/L (136-147); TOTAL BILIRUBIN 0.5 MG/DL (0.0-1.0); UREA NITROGEN (BUN) 11 mg/dL (9-23)
[2016-09-01 15:00] VITALS: BP 122/65
[2016-09-01 22:18] VITALS: BP 140/68
[2016-09-02 00:46] VITALS: BP 135/70
[2016-09-02 07:03] LABS: ANION GAP 4 MEQ/L (2-14); CHLORIDE 98 MEQ/L (99-109); GFR ESTIMATE (CALCULATED) > 59 mL/min/; GLUCOSE 91 mg/dL (70-99); POTASSIUM 5.5 MEQ/L (3.7-5.4); SAMPLE HEMOLYSIS CHECK 0; SAMPLE ICTERIC CHECK 0; SAMPLE LIPEMIA CHECK 0; SODIUM 125 MEQ/L (136-147); UREA NITROGEN (BUN) 17 mg/dL (9-23)
[2016-09-02 07:27] VITALS: BP 141/69
[2016-09-02] MEDS ORDERED: DIAZEPAM5 MG PO (12:24)
[2016-09-02] MEDS ORDERED: SUMATRIPTAN SUC50 MG PO (12:24)
[2016-09-02] MEDS ORDERED: TIZANIDINE HCL2 MG PO (12:25)
[2016-09-02] MEDS ORDERED: LOPRESSOR25 MG PO (12:27)
[2016-09-02] MEDS ORDERED: VITAMIN D2000 UNIT PO (12:28)
[2016-09-02] MEDS ORDERED: VENLAFAXINE HCL75 MG PO ×2 (12:29)
[2016-09-02 15:31] VITALS: BP 111/54
[2016-09-02 23:28] VITALS: BP 108/59
[2016-09-03 06:36] LABS: ANION GAP 9 MEQ/L (2-14); CHLORIDE 99 MEQ/L (99-109); GFR ESTIMATE (CALCULATED) > 59 mL/min/; GLUCOSE 76 mg/dL (70-99); POTASSIUM 4.5 MEQ/L (3.7-5.4); SAMPLE HEMOLYSIS CHECK 0; SAMPLE ICTERIC CHECK 0; SAMPLE LIPEMIA CHECK 0; SODIUM 130 MEQ/L (136-147); UREA NITROGEN (BUN) 21 mg/dL (9-23)
[2016-09-03 09:07] VITALS: BP 104/55
[2016-09-03 17:06] VITALS: BP 114/56
[2016-09-03 20:48] VITALS: BP 123/59
[2016-09-03 22:45] VITALS: BP 104/55
[2016-09-04 06:19] LABS: ANION GAP 9 MEQ/L (2-14); CHLORIDE 100 MEQ/L (99-109); GFR ESTIMATE (CALCULATED) > 59 mL/min/; GLUCOSE 83 mg/dL (70-99); POTASSIUM 4.3 MEQ/L (3.7-5.4); SAMPLE HEMOLYSIS CHECK 0; SAMPLE ICTERIC CHECK 0; SAMPLE LIPEMIA CHECK 0; SODIUM 133 MEQ/L (136-147); UREA NITROGEN (BUN) 25 mg/dL (9-23)
[2016-09-04 07:13] LABS: HEMATOCRIT 31.2 % (36.0-46.0); MCV 81.7 FL (83-99); MEAN PLAT.VOLUME 9.6 uM^3 (9.5-12.4); PLATELET COUNT 203 K/uL (156-360); RBC DIS.WIDTH-CV 15.5 % (11.8-14.6); RBC DIS.WIDTH-SD 44.2 % (39-53); RED BLOOD COUNT 3.82 M/uL (3.80-5.20); WHITE BLOOD COUNT 5.2 K/uL (4.1-10.2)
[2016-09-04 08:20] VITALS: BP 130/62
[2016-09-04 17:06] VITALS: BP 123/58
[2016-09-04 20:25] VITALS: BP 140/62
[2016-09-04 23:54] VITALS: BP 108/55
[2016-09-05 07:27] VITALS: BP 131/63
[2016-09-05] MEDS ORDERED: FLAGYL500 MG PO (08:23)
== END 2016-09-05 16:03 | disposition home health service (06) | DRG 392 ==
LOC: EME 01:05 → 5EAST 03:58 → EDOF 03:58 → 4EAST 03:58 → 5EAST 08-31 15:04
PROVIDERS: Emergency Medicine; Family Medicine; Internal Medicine
DX: K57.92 Diverticulitis of intestine, part unspecified, without perforation or abscess without bleeding (principal); E87.6 Hypokalemia; I10 Essential (primary) hypertension; D64.9 Anemia, unspecified; J44.9 Chronic obstructive pulmonary disease, unspecified; K21.9 Gastro-esophageal reflux disease without esophagitis; K59.09 Other constipation; F32.9 Major depressive disorder, single episode, unspecified; E03.9 Hypothyroidism, unspecified; M47.816 Spondylosis without myelopathy or radiculopathy, lumbar region; G89.29 Other chronic pain; M19.90 Unspecified osteoarthritis, unspecified site; Z66 Do not resuscitate; Z51.5 Encounter for palliative care; Z96.653 Presence of artificial knee joint, bilateral; I25.2 Old myocardial infarction; Z79.02 Long term (current) use of antithrombotics/antiplatelets; Z85.850 Personal history of malignant neoplasm of thyroid; Z87.891 Personal history of nicotine dependence; Z91.138 Patient's unintentional underdosing of medication regimen for other reason
CPT/HCPCS: 74177; 80048; 80048 91; 80053; 81003; 83605; 83690; 85025; 85027; 94640; 94640 76; 99202; 99281; 99285; J0360; J1630; J2405; J2765; J3480; J7030; S0028; S0030

== ENCOUNTER 2017-07-04 13:22 | Inpatient (IN) | payer OTHER ==
[~2017-07-04] VITALS: Ht 152.4 cm; Wt 63.2 kg
[~2017-07-04 13:22] MED LIST changes: +LASIX40 MG PO; +SUMATRIPTAN SUC50 MG PO; +VENLAFAXINE HCL75 MG PO
[2017-07-04 14:41] LABS: ALBUMIN 4.6 g/dL (3.2-4.8); CHLORIDE 95 mEq/L (99-109); POTASSIUM 3.5 mEq/L (3.7-5.4); SODIUM 131 mEq/L (136-147)
[2017-07-04 14:43] LABS: GLUCOSE 123 mg/dL (70-99); TOTAL PROTEIN 9.3 g/dL (6.4-8.3)
[2017-07-04 14:45] LABS: TOTAL BILIRUBIN 0.5 mg/dL (0.0-1.0)
[2017-07-04 14:47] LABS: ALKALINE PHOSPHATASE 147 IU/L (3-129); CREATININE 0.8 mg/dL (0.6-1.3); GFR ESTIMATE (CALCULATED) > 59 mL/min/
[2017-07-04 14:48] LABS: AST (GOT) 23 IU/L (2-34); UREA NITROGEN (BUN) 14 mg/dL (9-23)
[2017-07-04 14:49] LABS: DIRECT BILIRUBIN 0.2 mg/dL (0.0-0.3)
[2017-07-04 14:50] LABS: ALT (GPT) 15 IU/L (3-49); LIPASE 29 U/L (1.0-51.0)
[2017-07-04 15:06] LABS: APPEARANCE CLEAR ((CLEAR)); BILIRUBIN NEGATIVE; BLOOD NEGATIVE; COLOR STRAW ((YELLOW)); GLUCOSE (STRIP) 50; KETONES NEGATIVE; LEUKOCYTES NEGATIVE; NITRITE NEGATIVE; PROTEIN (STRIP) 100; SPECIFIC GRAVITY 1.009 (1.000-1.030); UROBILINOGEN 0.2 MG/DL (0.2-1.0)
[2017-07-04 15:11] LABS: BACTERIA RARE /HPF; EPITHELIAL CELLS RARE /HPF; MUCUS NONE SEEN /LPF; RED BLOOD CELLS 0-5 /HPF (0-5); UCUL ADDED? NO; WHITE BLOOD CELLS 0-5 /HPF (0-5)
[2017-07-04 15:17] LABS: HEMATOCRIT 37.3 % (36.0-46.0); HEMOGLOBIN 12.1 G/DL (11.9-15.5); MCH 25.1 PG (29.0-34.0); MCHC 32.4 G/DL (30.0-36.0); MCV 77.4 FL (83-99); PLATELET COUNT 329 K/uL (156-360); RBC DIS.WIDTH-SD 46.2 % (39-53); RED BLOOD COUNT 4.82 M/uL (3.80-5.20); WHITE BLOOD COUNT 9.6 K/uL (4.1-10.2)
[2017-07-04 15:54] LABS: TROP-I INTERPRETATION NEGATIVE; TROPONIN-I < 0.01 ng/mL (0.0-0.30)
[2017-07-04 20:38] VITALS: BP 186/88
[2017-07-04 23:28] VITALS: BP 197/91
[2017-07-05 04:09] VITALS: BP 193/104
[2017-07-05 06:18] LABS: CHLORIDE 93 MEQ/L (99-109); CREATININE 0.7 MG/DL (0.6-1.3); GFR ESTIMATE (CALCULATED) > 59 mL/min/; GLUCOSE 163 mg/dL (70-99); POTASSIUM 3.9 MEQ/L (3.7-5.4); SODIUM 131 MEQ/L (136-147); UREA NITROGEN (BUN) 13 mg/dL (9-23)
[2017-07-05 07:37] VITALS: BP 199/95
[2017-07-05 08:00] LABS: HEMATOCRIT 38.1 % (36.0-46.0); HEMOGLOBIN 12.3 G/DL (11.9-15.5); MCH 25.2 PG (29.0-34.0); MCHC 32.3 G/DL (30.0-36.0); MCV 78.1 FL (83-99); PLATELET COUNT 353 K/uL (156-360); RBC DIS.WIDTH-CV 18.9 % (11.8-14.6); RBC DIS.WIDTH-SD 46.9 % (39-53); RED BLOOD COUNT 4.88 M/uL (3.80-5.20); WHITE BLOOD COUNT 10.4 K/uL (4.1-10.2)
[2017-07-05 10:57] VITALS: BP 182/79
[2017-07-05 15:45] VITALS: BP 172/85
[2017-07-05 20:14] VITALS: BP 180/86
[2017-07-05 23:55] VITALS: BP 196/98
[2017-07-06] VITALS (9 sets, daily range): BP systolic 151–183; BP diastolic 72–110
[2017-07-06 06:31] LABS: CHLORIDE 97 MEQ/L (99-109); CREATININE 0.5 MG/DL (0.6-1.3); GFR ESTIMATE (CALCULATED) > 59 mL/min/; GLUCOSE 144 mg/dL (70-99); POTASSIUM 3.6 MEQ/L (3.7-5.4); SODIUM 128 MEQ/L (136-147); UREA NITROGEN (BUN) 8 mg/dL (9-23)
[2017-07-06 06:51] LABS: HEMATOCRIT 33.9 % (36.0-46.0); HEMOGLOBIN 11.2 G/DL (11.9-15.5); MCH 25.4 PG (29.0-34.0); MCV 76.9 FL (83-99); PLATELET COUNT 373 K/uL (156-360); RBC DIS.WIDTH-CV 18.5 % (11.8-14.6); RBC DIS.WIDTH-SD 45.7 % (39-53); RED BLOOD COUNT 4.41 M/uL (3.80-5.20); WHITE BLOOD COUNT 11.1 K/uL (4.1-10.2)
[2017-07-07 04:53] VITALS: BP 170/72
[2017-07-07 05:49] LABS: BASOPHIL (%) 0.1 % (0-1); EOSINOPHIL (%) 0.3 % (0-5); HEMATOCRIT 24.7 % (36.0-46.0); HEMOGLOBIN 11.4 G/DL (11.9-15.5); IMMATURE GRANULOCYTE (%) 0.5 % (0.0-0.7); LYMPHOCYTE (%) 19.5 % (15-42); LYMPHOCYTE COUNT 1.7 K/uL (1.0-2.8); MONOCYTE (%) 11.8 % (3-12); MONOCYTE COUNT 1.1 K/uL (0-0.8); NEUTROPHIL (%) 67.8 % (45-76); PLATELET COUNT 339 K/uL (156-360); RBC DIS.WIDTH-CV 26.3 % (11.8-14.6); RBC DIS.WIDTH-SD 46.7 % (39-53); WHITE BLOOD COUNT 8.9 K/uL (4.1-10.2)
[2017-07-07 05:52] LABS: MCH 41.3 PG (29.0-34.0); MCHC 46.2 G/DL (30.0-36.0); MCV 89.5 FL (83-99); RED BLOOD COUNT 2.76 M/uL (3.80-5.20)
[2017-07-07 06:26] LABS: CHLORIDE 96 MEQ/L (99-109); CREATININE 0.6 MG/DL (0.6-1.3); GFR ESTIMATE (CALCULATED) > 59 mL/min/; GLUCOSE 108 mg/dL (70-99); POTASSIUM 3.5 MEQ/L (3.7-5.4); SODIUM 129 MEQ/L (136-147); UREA NITROGEN (BUN) 9 mg/dL (9-23)
[2017-07-07 08:04] VITALS: BP 160/78
[2017-07-07 11:52] VITALS: BP 158/74
[2017-07-07] MEDS ORDERED: CARDIZEM CD,CA240 MG PO (15:46)
[2017-07-07 16:27] VITALS: BP 106/68
== END 2017-07-07 17:23 | disposition home health service (06) | DRG 392 ==
LOC: EME 13:22 → EDOF 16:44 → CANRESERV 16:46 → ENRESERV 16:46 → 3EAST 18:16 → EDOF 18:16 → ENRESERV 18:57 → 3EAST 20:17
PROVIDERS: Emergency Medicine; Internal Medicine; Internal Medicine Gastroenterology
DX: K52.9 Noninfective gastroenteritis and colitis, unspecified (principal); F11.23 Opioid dependence with withdrawal; J44.9 Chronic obstructive pulmonary disease, unspecified; E87.1 Hypo-osmolality and hyponatremia; E89.0 Postprocedural hypothyroidism; I10 Essential (primary) hypertension; I48.91 Unspecified atrial fibrillation; G43.909 Migraine, unspecified, not intractable, without status migrainosus; F32.9 Major depressive disorder, single episode, unspecified; M47.812 Spondylosis without myelopathy or radiculopathy, cervical region; M47.816 Spondylosis without myelopathy or radiculopathy, lumbar region; Z85.850 Personal history of malignant neoplasm of thyroid; Z96.653 Presence of artificial knee joint, bilateral; Z87.891 Personal history of nicotine dependence; G25.0 Essential tremor; I47.1 Supraventricular tachycardia; K57.90 Diverticulosis of intestine, part unspecified, without perforation or abscess without bleeding
CPT/HCPCS: 74176; 80048; 80076; 81003; 83690; 84484; 85014; 85018; 85025; 85027; 85610; 86850; 86900; 86901; 87493; 93005; 94640; 94640 76; 99202; 99281; 99285; J0360; J1885; J2405; J7030

== ENCOUNTER 2017-07-15 14:17 | Inpatient (IN) | payer OTHER ==
[~2017-07-15] VITALS: Ht 152.4 cm; Wt 64.0 kg
[~2017-07-15 14:17] MED LIST changes: +CARDIZEM CD,CA240 MG PO
[2017-07-15 15:27] LABS: BASOPHIL (%) 0.2 % (0-1); EOSINOPHIL (%) 0.3 % (0-5); HEMATOCRIT 32.8 % (36.0-46.0); HEMOGLOBIN 12.1 G/DL (11.9-15.5); IMMATURE GRANULOCYTE (%) 0.5 % (0.0-0.7); LYMPHOCYTE (%) 10.5 % (15-42); LYMPHOCYTE COUNT 0.9 K/uL (1.0-2.8); MCH 31.2 PG (29.0-34.0); MCHC 36.9 G/DL (30.0-36.0); MCV 84.5 FL (83-99); MONOCYTE COUNT 0.7 K/uL (0-0.8); NEUTROPHIL (%) 80.5 % (45-76); NEUTROPHIL COUNT 7.1 K/uL (1.8-6.4); NRBC (%) 0.3 /100 WBC (0-0); PLATELET COUNT 213 K/uL (156-360); RBC DIS.WIDTH-CV 24.5 % (11.8-14.6); RBC DIS.WIDTH-SD 54.8 % (39-53); RED BLOOD COUNT 3.88 M/uL (3.80-5.20); WHITE BLOOD COUNT 8.9 K/uL (4.1-10.2)
[2017-07-15 15:28] LABS: INTER. NORMALIZED RATIO 1.1
[2017-07-15 15:30] LABS: ALBUMIN 3.8 g/dL (3.2-4.8)
[2017-07-15 15:31] LABS: CHLORIDE 101 mEq/L (99-109); SODIUM 139 mEq/L (136-147)
[2017-07-15 15:33] LABS: GLUCOSE 122 mg/dL (70-99); TOTAL PROTEIN 7.9 g/dL (6.4-8.3)
[2017-07-15 15:35] LABS: TOTAL BILIRUBIN 0.5 mg/dL (0.0-1.0)
[2017-07-15 15:36] LABS: ALKALINE PHOSPHATASE 147 IU/L (3-129)
[2017-07-15 15:37] LABS: GFR ESTIMATE (CALCULATED) 57 mL/min/
[2017-07-15 15:38] LABS: AST (GOT) 23 IU/L (2-34); UREA NITROGEN (BUN) 22 mg/dL (9-23)
[2017-07-15 15:40] LABS: ALT (GPT) 20 IU/L (3-49); CREATINE KINASE 65 IU/L (1-294); LIPASE 26 U/L (1.0-51.0)
[2017-07-15 15:43] LABS: TROP-I INTERPRETATION NEGATIVE; TROPONIN-I 0.06 ng/mL (0.0-0.30)
[2017-07-15 15:55] LABS: APPEARANCE SL.HAZY ((CLEAR)); BILIRUBIN NEGATIVE; BLOOD SMALL; COLOR YELLOW ((YELLOW)); GLUCOSE (STRIP) NEGATIVE; KETONES 5; LEUKOCYTES NEGATIVE; NITRITE NEGATIVE; PROTEIN (STRIP) 100; SPECIFIC GRAVITY 1.018 (1.000-1.030); UROBILINOGEN 0.2 MG/DL (0.2-1.0)
[2017-07-15 16:04] LABS: BACTERIA RARE /HPF; EPITHELIAL CELLS 1+ /HPF; MUCUS TRACE /LPF; WHITE BLOOD CELLS 0-5 /HPF (0-5)
[2017-07-15] MEDS ORDERED: CARDIZEM CD,CA240 MG PO (19:16)
[2017-07-15] MEDS ORDERED: ESTRING1 EACH VG (19:20)
[2017-07-15] MEDS ORDERED: CRANBERRY TABL1 EACH PO (19:21)
[2017-07-15 19:25] LABS: PTT 24.5 SEC (25-37)
[2017-07-15 21:16] VITALS: BP 156/87
[2017-07-15 21:30] VITALS: BP 156/87
[2017-07-15 22:00] VITALS: BP 160/105
[2017-07-15 23:00] VITALS: BP 138/87
[2017-07-16] VITALS (23 sets, daily range): BP systolic 83–186; BP diastolic 48–126
[2017-07-16 01:39] LABS: HEMATOCRIT 34.4 % (36.0-46.0); HEMOGLOBIN 12.2 G/DL (11.9-15.5); MCH 30.3 PG (29.0-34.0); MCHC 35.5 G/DL (30.0-36.0); MCV 85.4 FL (83-99); PLATELET COUNT 230 K/uL (156-360); RBC DIS.WIDTH-CV 24.5 % (11.8-14.6); RBC DIS.WIDTH-SD 55.9 % (39-53); RED BLOOD COUNT 4.03 M/uL (3.80-5.20); WHITE BLOOD COUNT 11.5 K/uL (4.1-10.2)
[2017-07-16 01:48] LABS: INTER. NORMALIZED RATIO 1.3
[2017-07-16 02:00] LABS: PTT 104.6 SEC (25-37)
[2017-07-16 09:15] LABS: HEMATOCRIT 35.8 % (36.0-46.0); HEMOGLOBIN 11.5 G/DL (11.9-15.5); MCH 25.6 PG (29.0-34.0); MCHC 32.1 G/DL (30.0-36.0); MCV 79.6 FL (83-99); PLATELET COUNT 223 K/uL (156-360); RBC DIS.WIDTH-CV 20.8 % (11.8-14.6); WHITE BLOOD COUNT 12.5 K/uL (4.1-10.2)
[2017-07-16 09:52] LABS: CHLORIDE 101 MEQ/L (99-109); CREATININE 0.8 MG/DL (0.6-1.3); GFR ESTIMATE (CALCULATED) > 59 mL/min/; GLUCOSE 106 mg/dL (70-99); POTASSIUM 3.5 MEQ/L (3.7-5.4); SODIUM 138 MEQ/L (136-147); UREA NITROGEN (BUN) 14 mg/dL (9-23)
[2017-07-17] VITALS (21 sets, daily range): BP systolic 82–191; BP diastolic 51–106
[2017-07-17 07:25] LABS: HEMATOCRIT 35.8 % (36.0-46.0); HEMOGLOBIN 11.5 G/DL (11.9-15.5); MCH 25.7 PG (29.0-34.0); MCHC 32.1 G/DL (30.0-36.0); MCV 79.9 FL (83-99); PLATELET COUNT 257 K/uL (156-360); RBC DIS.WIDTH-CV 20.9 % (11.8-14.6); RBC DIS.WIDTH-SD 54.3 % (39-53); RED BLOOD COUNT 4.48 M/uL (3.80-5.20); WHITE BLOOD COUNT 9.5 K/uL (4.1-10.2)
[2017-07-18] VITALS (11 sets, daily range): BP systolic 92–151; BP diastolic 57–84
[2017-07-18 06:19] LABS: PTT 56.5 SEC (25-37)
[2017-07-18 06:27] LABS: BASOPHIL (%) 0.4 % (0-1); EOSINOPHIL (%) 2.1 % (0-5); EOSINOPHIL COUNT 0.2 K/uL (0-0.3); HEMATOCRIT 30.1 % (36.0-46.0); HEMOGLOBIN 9.7 G/DL (11.9-15.5); IMMATURE GRANULOCYTE (%) 0.2 % (0.0-0.7); LYMPHOCYTE (%) 25.6 % (15-42); LYMPHOCYTE COUNT 2.2 K/uL (1.0-2.8); MCH 25.4 PG (29.0-34.0); MCHC 32.2 G/DL (30.0-36.0); MCV 78.8 FL (83-99); MONOCYTE (%) 9.2 % (3-12); MONOCYTE COUNT 0.8 K/uL (0-0.8); NEUTROPHIL (%) 62.5 % (45-76); NEUTROPHIL COUNT 5.4 K/uL (1.8-6.4); PLATELET COUNT 232 K/uL (156-360); RBC DIS.WIDTH-CV 19.9 % (11.8-14.6); RBC DIS.WIDTH-SD 54.5 % (39-53); RED BLOOD COUNT 3.82 M/uL (3.80-5.20); WHITE BLOOD COUNT 8.6 K/uL (4.1-10.2)
[2017-07-18 06:29] LABS: CHLORIDE 104 MEQ/L (99-109); CREATININE 0.9 MG/DL (0.6-1.3); GFR ESTIMATE (CALCULATED) > 59 mL/min/; GLUCOSE 87 mg/dL (70-99); POTASSIUM 3.8 MEQ/L (3.7-5.4); SODIUM 134 MEQ/L (136-147); UREA NITROGEN (BUN) 16 mg/dL (9-23)
[2017-07-18 10:56] LABS: INTER. NORMALIZED RATIO 1.2
[2017-07-19] VITALS (10 sets, daily range): BP systolic 117–163; BP diastolic 66–85
[2017-07-19 06:44] LABS: INTER. NORMALIZED RATIO 1.1
[2017-07-19 06:46] LABS: PTT 53.3 SEC (25-37)
[2017-07-19 06:49] LABS: BASOPHIL (%) 0.5 % (0-1); EOSINOPHIL (%) 2.9 % (0-5); EOSINOPHIL COUNT 0.2 K/uL (0-0.3); HEMATOCRIT 20.9 % (36.0-46.0); HEMOGLOBIN 9.1 G/DL (11.9-15.5); IMMATURE GRANULOCYTE (%) 0.3 % (0.0-0.7); LYMPHOCYTE (%) 22.9 % (15-42); LYMPHOCYTE COUNT 1.7 K/uL (1.0-2.8); MCH 40.3 PG (29.0-34.0); MCHC 43.5 G/DL (30.0-36.0); MCV 92.5 FL (83-99); MONOCYTE (%) 8.3 % (3-12); MONOCYTE COUNT 0.6 K/uL (0-0.8); NEUTROPHIL (%) 65.1 % (45-76); NEUTROPHIL COUNT 4.9 K/uL (1.8-6.4); PLATELET COUNT 212 K/uL (156-360); RBC DIS.WIDTH-CV 27.2 % (11.8-14.6); RBC DIS.WIDTH-SD 56.7 % (39-53); RED BLOOD COUNT 2.26 M/uL (3.80-5.20); WHITE BLOOD COUNT 7.6 K/uL (4.1-10.2)
[2017-07-20 01:10] LABS: INTER. NORMALIZED RATIO 1.2
[2017-07-20 01:13] LABS: PTT 65.4 SEC (25-37)
[2017-07-20 05:43] VITALS: BP 138/76
[2017-07-20 07:56] VITALS: BP 177/86
[2017-07-20 16:19] VITALS: BP 135/74
[2017-07-20 22:06] VITALS: BP 165/70
[2017-07-21 00:22] VITALS: BP 116/90
[2017-07-21 06:42] LABS: INTER. NORMALIZED RATIO 1.2
[2017-07-21 07:04] LABS: BASOPHIL (%) 0.6 % (0-1); EOSINOPHIL (%) 3.5 % (0-5); EOSINOPHIL COUNT 0.2 K/uL (0-0.3); HEMATOCRIT 27.4 % (36.0-46.0); HEMOGLOBIN 9.8 G/DL (11.9-15.5); IMMATURE GRANULOCYTE (%) 0.5 % (0.0-0.7); LYMPHOCYTE (%) 27.8 % (15-42); LYMPHOCYTE COUNT 1.8 K/uL (1.0-2.8); MCHC 35.8 G/DL (30.0-36.0); MONOCYTE (%) 8.9 % (3-12); MONOCYTE COUNT 0.6 K/uL (0-0.8); NEUTROPHIL (%) 58.7 % (45-76); NEUTROPHIL COUNT 3.7 K/uL (1.8-6.4); PLATELET COUNT 254 K/uL (156-360); RBC DIS.WIDTH-CV 25.2 % (11.8-14.6); RBC DIS.WIDTH-SD 58.4 % (39-53); WHITE BLOOD COUNT 6.3 K/uL (4.1-10.2)
[2017-07-21 07:05] LABS: MCH 31.4 PG (29.0-34.0); MCV 87.8 FL (83-99); RED BLOOD COUNT 3.12 M/uL (3.80-5.20)
[2017-07-21 08:40] VITALS: BP 160/80
[2017-07-21 14:10] VITALS: BP 135/60
[2017-07-21 15:59] VITALS: BP 110/68
[2017-07-21 20:33] VITALS: BP 149/70
[2017-07-22] VITALS (7 sets, daily range): BP systolic 125–172; BP diastolic 58–75
[2017-07-22 06:44] LABS: INTER. NORMALIZED RATIO 1.3
[2017-07-22 08:13] LABS: PTT 59.3 SEC (25-37)
[2017-07-23 03:06] VITALS: BP 135/69
[2017-07-23 06:23] LABS: INTER. NORMALIZED RATIO 1.5
[2017-07-23 07:21] VITALS: BP 138/70
[2017-07-23 07:25] LABS: PTT 63.2 SEC (25-37)
[2017-07-23 11:51] VITALS: BP 138/76
[2017-07-23 15:58] VITALS: BP 120/70
[2017-07-23 19:59] VITALS: BP 140/64
[2017-07-24 00:25] VITALS: BP 120/64
[2017-07-24 04:17] VITALS: BP 118/72
[2017-07-24 08:29] LABS: INTER. NORMALIZED RATIO 1.7
[2017-07-24 08:45] LABS: HEMATOCRIT 26.3 % (36.0-46.0); HEMOGLOBIN 8.6 G/DL (11.9-15.5); MCHC 32.7 G/DL (30.0-36.0); PLATELET COUNT 274 K/uL (156-360); RBC DIS.WIDTH-CV 20.3 % (11.8-14.6); RBC DIS.WIDTH-SD 56.7 % (39-53); RED BLOOD COUNT 3.31 M/uL (3.80-5.20); WHITE BLOOD COUNT 4.8 K/uL (4.1-10.2)
[2017-07-24 08:47] LABS: MCV 79.5 FL (83-99)
[2017-07-24 08:57] VITALS: BP 136/64
[2017-07-24 16:01] VITALS: BP 140/60
[2017-07-24 20:31] VITALS: BP 120/81
[2017-07-24 23:56] VITALS: BP 129/64
[2017-07-25 07:52] VITALS: BP 107/57
[2017-07-25 08:04] LABS: BASOPHIL (%) 0.8 % (0-1); EOSINOPHIL COUNT 0.1 K/uL (0-0.3); HEMATOCRIT 23.1 % (36.0-46.0); IMMATURE GRANULOCYTE (%) 0.3 % (0.0-0.7); LYMPHOCYTE (%) 36.3 % (15-42); LYMPHOCYTE COUNT 1.3 K/uL (1.0-2.8); MCHC 34.6 G/DL (30.0-36.0); MONOCYTE (%) 13.4 % (3-12); MONOCYTE COUNT 0.5 K/uL (0-0.8); NEUTROPHIL (%) 46.2 % (45-76); NEUTROPHIL COUNT 1.7 K/uL (1.8-6.4); PLATELET COUNT 253 K/uL (156-360); RBC DIS.WIDTH-CV 23.9 % (11.8-14.6); RBC DIS.WIDTH-SD 58.7 % (39-53); RED BLOOD COUNT 2.67 M/uL (3.80-5.20); WHITE BLOOD COUNT 3.7 K/uL (4.1-10.2)
[2017-07-25 08:05] LABS: MCV 86.5 FL (83-99)
[2017-07-25 08:21] LABS: PTT 60.5 SEC (25-37)
[2017-07-25 08:34] VITALS: BP 130/60
[2017-07-25 12:10] VITALS: BP 128/58
[2017-07-25 15:24] VITALS: BP 102/52
[2017-07-25 19:27] LABS: STOOL OCCULT BLD 1ST SPECIMEN NEGATIVE
[2017-07-25 19:40] VITALS: BP 104/54
[2017-07-25 23:40] VITALS: BP 122/78
[2017-07-26 07:28] LABS: INTER. NORMALIZED RATIO 1.8
[2017-07-26 08:15] VITALS: BP 128/76
[2017-07-26 08:36] LABS: BASOPHIL (%) 0.6 % (0-1); EOSINOPHIL (%) 2.3 % (0-5); EOSINOPHIL COUNT 0.1 K/uL (0-0.3); HEMATOCRIT 27.7 % (36.0-46.0); HEMOGLOBIN 8.8 G/DL (11.9-15.5); IMMATURE GRANULOCYTE (%) 0.2 % (0.0-0.7); LYMPHOCYTE (%) 32.6 % (15-42); LYMPHOCYTE COUNT 1.6 K/uL (1.0-2.8); MCH 25.4 PG (29.0-34.0); MCHC 31.8 G/DL (30.0-36.0); MONOCYTE (%) 11.3 % (3-12); MONOCYTE COUNT 0.5 K/uL (0-0.8); NEUTROPHIL COUNT 2.5 K/uL (1.8-6.4); PLATELET COUNT 294 K/uL (156-360); RBC DIS.WIDTH-CV 20.4 % (11.8-14.6); RBC DIS.WIDTH-SD 57.4 % (39-53); WHITE BLOOD COUNT 4.8 K/uL (4.1-10.2)
[2017-07-26 08:44] LABS: MCV 80.1 FL (83-99); RED BLOOD COUNT 3.46 M/uL (3.80-5.20)
[2017-07-26] MEDS ORDERED: VALACYCLOVIR500 MG PO (15:21)
[2017-07-26] MEDS ORDERED: COUMADIN7.5 MG PO (15:24)
[2017-07-26] MEDS ORDERED: OXYCODONE HCL10 MG PO (15:25)
[2017-07-26 15:38] VITALS: BP 130/72
== END 2017-07-26 16:37 | DRG 176 ==
LOC: TRA 14:17 → EME 14:17 → EDOF 19:46 → 4WEST 19:46 → ENRESERV 19:49 → 4WEST 21:09 → ENRESERV 07-19 09:59 → 3EAST 07-19 12:26
PROVIDERS: Emergency Medicine; Internal Medicine; Specialist; Surgery
DX: I26.99 Other pulmonary embolism without acute cor pulmonale (principal); S22.41XA Multiple fractures of ribs, right side, initial encounter for closed fracture; S22.22XA Fracture of body of sternum, initial encounter for closed fracture; W06.XXXA Fall from bed, initial encounter; Y92.003 Bedroom of unspecified non-institutional (private) residence as the place of occurrence of the external cause; E87.6 Hypokalemia; B02.9 Zoster without complications; Z66 Do not resuscitate; I10 Essential (primary) hypertension; R29.6 Repeated falls; K21.9 Gastro-esophageal reflux disease without esophagitis; G89.29 Other chronic pain; G43.909 Migraine, unspecified, not intractable, without status migrainosus; E78.5 Hyperlipidemia, unspecified; E89.0 Postprocedural hypothyroidism; M54.9 Dorsalgia, unspecified; F41.9 Anxiety disorder, unspecified; F32.9 Major depressive disorder, single episode, unspecified; J44.9 Chronic obstructive pulmonary disease, unspecified; M47.816 Spondylosis without myelopathy or radiculopathy, lumbar region; M47.812 Spondylosis without myelopathy or radiculopathy, cervical region; E87.1 Hypo-osmolality and hyponatremia; G25.0 Essential tremor; D64.9 Anemia, unspecified; Z96.653 Presence of artificial knee joint, bilateral; Z85.850 Personal history of malignant neoplasm of thyroid; I25.2 Old myocardial infarction; Z79.02 Long term (current) use of antithrombotics/antiplatelets; Z88.5 Allergy status to narcotic agent; Z88.6 Allergy status to analgesic agent; Z87.891 Personal history of nicotine dependence; Z87.11 Personal history of peptic ulcer disease
CPT/HCPCS: 70450; 71045; 71260; 72125; 72129; 74177; 80048; 80053; 81003; 82272; 82550; 83605; 83690; 84484; 85025; 85027; 85610; 85730; 87641; 93005; 93925; 93970; 94640; 94640 76; 94799; 97530 GP; 99202; 99281; 99285; J0360; J2270; J2405; J3010; J7030; J7040

== ENCOUNTER 2017-09-25 02:16 | Inpatient (IN) | payer OTHER ==
[~2017-09-25] VITALS: Ht 172.7 cm; Wt 56.1 kg
[~2017-09-25 02:16] MED LIST changes: +COUMADIN7.5 MG PO; +CRANBERRY TABL1 EACH PO; +VALACYCLOVIR500 MG PO
[2017-09-25 03:09] LABS: APPEARANCE CLEAR ((CLEAR)); BILIRUBIN NEGATIVE; BLOOD NEGATIVE; COLOR COLORLESS ((YELLOW)); GLUCOSE (STRIP) 50; KETONES 5; LEUKOCYTES NEGATIVE; NITRITE NEGATIVE; PROTEIN (STRIP) 100; SPECIFIC GRAVITY 1.008 (1.000-1.030); UROBILINOGEN 0.2 MG/DL (0.2-1.0)
[2017-09-25 03:12] LABS: BACTERIA NONE SEEN /HPF; EPITHELIAL CELLS RARE /HPF; MUCUS NONE SEEN /LPF; RED BLOOD CELLS 0-5 /HPF (0-5); UCUL ADDED? NO; WHITE BLOOD CELLS 0-5 /HPF (0-5)
[2017-09-25 03:34] LABS: ALBUMIN 4.2 g/dL (3.2-4.8); CHLORIDE 97 mEq/L (99-109); SODIUM 140 mEq/L (136-147)
[2017-09-25 03:36] LABS: GLUCOSE 158 mg/dL (70-99)
[2017-09-25 03:37] LABS: TOTAL PROTEIN 8.6 g/dL (6.4-8.3)
[2017-09-25 03:38] LABS: TOTAL BILIRUBIN 0.4 mg/dL (0.0-1.0)
[2017-09-25 03:40] LABS: ALKALINE PHOSPHATASE 126 IU/L (3-129); CREATININE 0.9 mg/dL (0.6-1.3); GFR ESTIMATE (CALCULATED) > 59 mL/min/
[2017-09-25 03:41] LABS: UREA NITROGEN (BUN) 8 mg/dL (9-23)
[2017-09-25 03:42] LABS: AST (GOT) 24 IU/L (2-34); DIRECT BILIRUBIN 0.2 mg/dL (0.0-0.3)
[2017-09-25 03:43] LABS: ALT (GPT) 14 IU/L (3-49)
[2017-09-25 03:44] LABS: LIPASE 18 U/L (1.0-51.0)
[2017-09-25 03:49] LABS: TROP-I INTERPRETATION NEGATIVE; TROPONIN-I 0.03 ng/mL (0.0-0.30)
[2017-09-25 05:23] LABS: BASOPHIL (%) 0.9 % (0-1); BASOPHIL COUNT 0.1 K/uL (0-0.1); EOSINOPHIL (%) 0.2 % (0-5); HEMOGLOBIN 10.5 G/DL (11.9-15.5); IMMATURE GRANULOCYTE (%) 0.5 % (0.0-0.7); LYMPHOCYTE (%) 16.7 % (15-42); LYMPHOCYTE COUNT 1.1 K/uL (1.0-2.8); MCH 24.2 PG (29.0-34.0); MCHC 31.8 G/DL (30.0-36.0); MCV 76.2 FL (83-99); MONOCYTE (%) 5.5 % (3-12); MONOCYTE COUNT 0.4 K/uL (0-0.8); NEUTROPHIL (%) 76.2 % (45-76); PLATELET COUNT 367 K/uL (156-360); RBC DIS.WIDTH-CV 18.7 % (11.8-14.6); RBC DIS.WIDTH-SD 51.4 % (39-53); RED BLOOD COUNT 4.33 M/uL (3.80-5.20); WHITE BLOOD COUNT 6.6 K/uL (4.1-10.2)
[2017-09-25 06:28] VITALS: BP 182/94
[2017-09-25 07:27] VITALS: BP 148/84
[2017-09-25] MEDS ORDERED: SERTRALINE HCL50 MG PO (09:07)
[2017-09-25 09:23] VITALS: BP 143/78
[2017-09-25 10:06] LABS: TROP-I INTERPRETATION NEGATIVE; TROPONIN-I 0.04 ng/mL (0.0-0.30)
[2017-09-25 11:57] VITALS: BP 175/79
[2017-09-25 15:02] LABS: HEMATOCRIT 36.3 % (36.0-46.0); HEMOGLOBIN 12.3 G/DL (11.9-15.5); MCV 78.4 FL (83-99)
[2017-09-25 18:55] VITALS: BP 154/72
[2017-09-25 23:23] VITALS: BP 169/72
[2017-09-26 04:21] VITALS: BP 182/88
[2017-09-26 05:09] LABS: HEMATOCRIT 34.6 % (36.0-46.0); HEMOGLOBIN 12.5 G/DL (11.9-15.5); MCHC 36.1 G/DL (30.0-36.0); PLATELET COUNT 399 K/uL (156-360); RBC DIS.WIDTH-CV 23.8 % (11.8-14.6); RBC DIS.WIDTH-SD 51.8 % (39-53); RED BLOOD COUNT 4.14 M/uL (3.80-5.20); WHITE BLOOD COUNT 7.7 K/uL (4.1-10.2)
[2017-09-26 05:24] LABS: MCH 30.2 PG (29.0-34.0); MCV 83.6 FL (83-99)
[2017-09-26 05:50] VITALS: BP 158/62
[2017-09-26 05:52] LABS: ALBUMIN 3.9 G/DL (3.2-4.8); ALKALINE PHOSPHATASE 107 IU/L (3-129); ALT (GPT) 10 IU/L (3-49); AST (GOT) 20 IU/L (2-34); CHLORIDE 97 MEQ/L (99-109); CREATININE 0.9 MG/DL (0.6-1.3); GFR ESTIMATE (CALCULATED) > 59 mL/min/; GLUCOSE 137 mg/dL (70-99); SODIUM 138 MEQ/L (136-147); TOTAL BILIRUBIN 0.5 MG/DL (0.0-1.0); TOTAL PROTEIN 7.8 G/DL (6.4-8.3); UREA NITROGEN (BUN) 10 mg/dL (9-23)
[2017-09-26 06:10] LABS: POTASSIUM 4.7 MEQ/L (3.7-5.4)
[2017-09-26 07:32] VITALS: BP 174/95
[2017-09-26 09:16] LABS: INTER. NORMALIZED RATIO 1.1
[2017-09-26 15:37] VITALS: BP 189/96
[2017-09-26 19:06] VITALS: BP 168/79
[2017-09-26 23:48] VITALS: BP 178/79
[2017-09-27] VITALS (7 sets, daily range): BP systolic 138–182; BP diastolic 70–98
[2017-09-27 06:37] LABS: HEMOGLOBIN 11.5 G/DL (11.9-15.5); MCH 30.9 PG (29.0-34.0); MCHC 37.1 G/DL (30.0-36.0); MCV 83.3 FL (83-99); PLATELET COUNT 362 K/uL (156-360); RBC DIS.WIDTH-CV 23.9 % (11.8-14.6); RED BLOOD COUNT 3.72 M/uL (3.80-5.20); WHITE BLOOD COUNT 7.9 K/uL (4.1-10.2)
[2017-09-27 06:43] LABS: INTER. NORMALIZED RATIO 1.2
[2017-09-27 06:58] LABS: ALBUMIN 3.8 G/DL (3.2-4.8); ALKALINE PHOSPHATASE 102 IU/L (3-129); ALT (GPT) 10 IU/L (3-49); AST (GOT) 18 IU/L (2-34); CHLORIDE 97 MEQ/L (99-109); CREATININE 0.8 MG/DL (0.6-1.3); GFR ESTIMATE (CALCULATED) > 59 mL/min/; GLUCOSE 114 mg/dL (70-99); POTASSIUM 4.2 MEQ/L (3.7-5.4); SODIUM 133 MEQ/L (136-147); TOTAL BILIRUBIN 0.5 MG/DL (0.0-1.0); TOTAL PROTEIN 6.9 G/DL (6.4-8.3); UREA NITROGEN (BUN) 10 mg/dL (9-23)
[2017-09-27] MEDS ORDERED: COUMADIN7.5 MG PO (14:37)
[2017-09-27] MEDS ORDERED: FUROSEMIDE40 MG PO (14:38)
[2017-09-27] MEDS ORDERED: VENLAFAXINE HC150 M1 PO (14:38)
[2017-09-27] MEDS ORDERED: K-DUR10 MEQ PO (14:38)
[2017-09-28 00:31] VITALS: BP 124/72
[2017-09-28 04:29] VITALS: BP 149/83
[2017-09-28 06:18] LABS: HEMATOCRIT 31.4 % (36.0-46.0); HEMOGLOBIN 11.3 G/DL (11.9-15.5); MCH 29.4 PG (29.0-34.0); MCV 81.6 FL (83-99); PLATELET COUNT 355 K/uL (156-360); RBC DIS.WIDTH-CV 23.3 % (11.8-14.6); RBC DIS.WIDTH-SD 50.5 % (39-53); RED BLOOD COUNT 3.85 M/uL (3.80-5.20); WHITE BLOOD COUNT 6.4 K/uL (4.1-10.2)
[2017-09-28 06:29] LABS: INTER. NORMALIZED RATIO 1.4
[2017-09-28 06:46] LABS: ALBUMIN 3.3 G/DL (3.2-4.8); ALKALINE PHOSPHATASE 87 IU/L (3-129); ALT (GPT) 8 IU/L (3-49); AST (GOT) 16 IU/L (2-34); CHLORIDE 95 MEQ/L (99-109); CREATININE 0.9 MG/DL (0.6-1.3); GFR ESTIMATE (CALCULATED) > 59 mL/min/; GLUCOSE 105 mg/dL (70-99); POTASSIUM 4.1 MEQ/L (3.7-5.4); SODIUM 130 MEQ/L (136-147); TOTAL BILIRUBIN 0.4 MG/DL (0.0-1.0); TOTAL PROTEIN 6.4 G/DL (6.4-8.3); UREA NITROGEN (BUN) 13 mg/dL (9-23)
[2017-09-28 07:50] VITALS: BP 142/64
[2017-09-28] MEDS ORDERED: LOPRESSOR50 MG PO (15:03)
== END 2017-09-28 16:00 | disposition home or self-care (01) | DRG 378 ==
LOC: EME 02:16 → 2EAST 05:30 → EDOF 05:30 → 2EAST 06:12
PROVIDERS: Emergency Medicine; Family Medicine; Internal Medicine; Internal Medicine Gastroenterology
DX: K55.21 Angiodysplasia of colon with hemorrhage (principal); K80.70 Calculus of gallbladder and bile duct without cholecystitis without obstruction; J44.9 Chronic obstructive pulmonary disease, unspecified; E87.1 Hypo-osmolality and hyponatremia; E87.6 Hypokalemia; I48.91 Unspecified atrial fibrillation; I47.1 Supraventricular tachycardia; I10 Essential (primary) hypertension; D64.9 Anemia, unspecified; K57.30 Diverticulosis of large intestine without perforation or abscess without bleeding; G25.0 Essential tremor; E89.0 Postprocedural hypothyroidism; E78.5 Hyperlipidemia, unspecified; R29.6 Repeated falls; K21.9 Gastro-esophageal reflux disease without esophagitis; G89.29 Other chronic pain; I25.2 Old myocardial infarction; M19.90 Unspecified osteoarthritis, unspecified site; M47.812 Spondylosis without myelopathy or radiculopathy, cervical region; M47.816 Spondylosis without myelopathy or radiculopathy, lumbar region; F32.9 Major depressive disorder, single episode, unspecified; F11.90 Opioid use, unspecified, uncomplicated; Z53.20 Procedure and treatment not carried out because of patient's decision for unspecified reasons; Z60.2 Problems related to living alone; Z85.850 Personal history of malignant neoplasm of thyroid; Z86.711 Personal history of pulmonary embolism; Z87.11 Personal history of peptic ulcer disease; Z87.891 Personal history of nicotine dependence; Z91.81 History of falling; Z87.81 Personal history of (healed) traumatic fracture; Z96.653 Presence of artificial knee joint, bilateral; Z79.01 Long term (current) use of anticoagulants; Z88.6 Allergy status to analgesic agent; Z88.5 Allergy status to narcotic agent
CPT/HCPCS: 74177; 80048; 80053; 80076; 81003; 83605; 83690; 83880; 84484; 85014; 85018; 85025; 85027; 85610; 86850; 86870; 86900; 86901; 86920; 87641; 94640; 94799; 99281; 99285; J0360; J2405; J3480; J7030

== ENCOUNTER 2017-10-01 20:43 | Inpatient (IN) | payer OTHER, MEDICARE ==
[~2017-10-01] VITALS: Ht 154.9 cm; Wt 59.6 kg
[~2017-10-01 20:43] MED LIST changes: +FUROSEMIDE40 MG PO; +K-DUR10 MEQ PO; +SERTRALINE HCL50 MG PO
[2017-10-01 21:41] LABS: CHLORIDE 93 mEq/L (99-109); POTASSIUM 4.2 mEq/L (3.7-5.4); SODIUM 131 mEq/L (136-147)
[2017-10-01 21:42] LABS: BASOPHIL (%) 0.4 % (0-1); EOSINOPHIL (%) 0.7 % (0-5); EOSINOPHIL COUNT 0.1 K/uL (0-0.3); IMMATURE GRANULOCYTE (%) 0.4 % (0.0-0.7); LYMPHOCYTE (%) 18.6 % (15-42); LYMPHOCYTE COUNT 1.5 K/uL (1.0-2.8); MONOCYTE (%) 9.7 % (3-12); MONOCYTE COUNT 0.8 K/uL (0-0.8); NEUTROPHIL (%) 70.2 % (45-76); NEUTROPHIL COUNT 5.6 K/uL (1.8-6.4); PLATELET COUNT 261 K/uL (156-360)
[2017-10-01 21:43] LABS: GLUCOSE 99 mg/dL (70-99); TOTAL PROTEIN 7.5 g/dL (6.4-8.3)
[2017-10-01 21:46] LABS: ALKALINE PHOSPHATASE 103 IU/L (3-129)
[2017-10-01 21:49] LABS: ALT (GPT) 19 IU/L (3-49); AST (GOT) 45 IU/L (2-34); GFR ESTIMATE (CALCULATED) 16 mL/min/; TOTAL BILIRUBIN 0.7 mg/dL (0.0-1.0); UREA NITROGEN (BUN) 46 mg/dL (9-23)
[2017-10-01 22:01] LABS: HEMATOCRIT 40.2 % (36.0-46.0); MCH 24.2 PG (29.0-34.0); MCHC 32.3 G/DL (30.0-36.0); RBC DIS.WIDTH-CV 25.7 % (11.8-14.6); RBC DIS.WIDTH-SD 52.4 % (39-53)
[2017-10-01 22:02] LABS: RED BLOOD COUNT 5.38 M/uL (3.80-5.20)
[2017-10-01 22:07] LABS: TROP-I INTERPRETATION NEGATIVE; TROPONIN-I 0.04 ng/mL (0.0-0.30)
[2017-10-01 22:26] LABS: ALBUMIN 3.8 g/dL (3.2-4.8)
[2017-10-01] MEDS ORDERED: DILTIAZEM 24HR240 MG PO (22:52)
[2017-10-01] MEDS ORDERED: MYSOLINE250 MG PO (22:52)
[2017-10-01] MEDS ORDERED: METOPROLOL TART50 MG PO (22:53)
[2017-10-01] MEDS ORDERED: TIZANIDINE HCL2 MG PO (22:53)
[2017-10-01] MEDS ORDERED: RANITIDINE HCL150 MG PO (22:53)
[2017-10-01] MEDS ORDERED: CLOPIDOGREL75 MG PO (22:53)
[2017-10-01] MEDS ORDERED: VENLAFAXINE HC150 M1 PO (22:54)
[2017-10-01 23:04] LABS: APPEARANCE SL.HAZY ((CLEAR)); BILIRUBIN NEGATIVE; BLOOD SMALL; COLOR YELLOW ((YELLOW)); GLUCOSE (STRIP) NEGATIVE; KETONES NEGATIVE; LEUKOCYTES TRACE; NITRITE NEGATIVE; PROTEIN (STRIP) 30; SPECIFIC GRAVITY 1.016 (1.000-1.030); UROBILINOGEN 0.2 MG/DL (0.2-1.0)
[2017-10-01 23:15] LABS: BACTERIA NONE SEEN /HPF; EPITHELIAL CELLS 2+ /HPF; HYALINE CASTS 20-30 /LPF; MUCUS TRACE /LPF; RED BLOOD CELLS 0-5 /HPF (0-5); UCUL ADDED? YES; URIC ACID CRYSTALS 1+ /HPF
[2017-10-02 02:11] VITALS: BP 150/70
[2017-10-02 02:59] LABS: INTER. NORMALIZED RATIO 1.3
[2017-10-02 03:42] LABS: ALBUMIN 3.4 g/dL (3.2-4.8)
[2017-10-02 03:43] LABS: CHLORIDE 99 mEq/L (99-109); POTASSIUM 3.9 mEq/L (3.7-5.4); SODIUM 132 mEq/L (136-147)
[2017-10-02 03:44] LABS: GLUCOSE 89 mg/dL (70-99)
[2017-10-02 03:48] LABS: GFR ESTIMATE (CALCULATED) 23 mL/min/; PHOSPHORUS 3.8 mg/dL (2.5-4.9)
[2017-10-02 03:49] LABS: UREA NITROGEN (BUN) 38 mg/dL (9-23)
[2017-10-02 03:52] LABS: CREATININE 2.2 mg/dL (0.6-1.3)
[2017-10-02 08:25] VITALS: BP 129/63
[2017-10-02 09:19] LABS: INTER. NORMALIZED RATIO 1.2
[2017-10-02 11:25] VITALS: BP 107/56
[2017-10-02 15:36] VITALS: BP 119/63
[2017-10-02 20:09] VITALS: BP 125/56
[2017-10-03 01:28] VITALS: BP 130/57
[2017-10-03 04:31] VITALS: BP 134/66
[2017-10-03 06:15] LABS: INTER. NORMALIZED RATIO 1.4
[2017-10-03 06:31] LABS: ALBUMIN 2.9 G/DL (3.2-4.8); GLUCOSE 87 mg/dL (70-99); PHOSPHORUS 2.1 mg/dL (2.5-4.9); POTASSIUM 4.6 MEQ/L (3.7-5.4); SODIUM 137 MEQ/L (136-147); UREA NITROGEN (BUN) 22 mg/dL (9-23)
[2017-10-03 06:32] LABS: CHLORIDE 106 MEQ/L (99-109); GFR ESTIMATE (CALCULATED) 57 mL/min/
[2017-10-03 08:05] VITALS: BP 147/71
[2017-10-03 11:56] VITALS: BP 141/64
[2017-10-03 16:50] VITALS: BP 140/62
[2017-10-03 23:55] VITALS: BP 138/72
[2017-10-04 06:43] LABS: INTER. NORMALIZED RATIO 1.7
[2017-10-04 08:43] VITALS: BP 140/65
[2017-10-04] MEDS ORDERED: COUMADIN7.5 MG PO (13:38)
[2017-10-04] MEDS ORDERED: CARDIZEM CD,CA120 MG PO (13:40)
[2017-10-04] MEDS ORDERED: HYDROCHLOROTHIA25 MG PO (13:40)
[2017-10-04] MEDS ORDERED: OXYCODONE HCL10 MG PO (13:44)
[2017-10-04 15:59] VITALS: BP 130/60
== END 2017-10-04 17:35 | DRG 683 ==
LOC: EME 20:43 → EDOF 10-02 00:37 → 2EAST 10-02 00:37 → ENRESERV 10-02 01:14 → CANRESERV 10-02 01:18 → ENRESERV 10-02 01:18 → 2EAST 10-02 01:57
PROVIDERS: Internal Medicine; Physician Assistant
DX: N17.9 Acute kidney failure, unspecified (principal); R33.9 Retention of urine, unspecified; Z86.711 Personal history of pulmonary embolism; I48.91 Unspecified atrial fibrillation; Z91.81 History of falling; Z87.891 Personal history of nicotine dependence; M47.812 Spondylosis without myelopathy or radiculopathy, cervical region; J44.9 Chronic obstructive pulmonary disease, unspecified; Z96.653 Presence of artificial knee joint, bilateral; E87.1 Hypo-osmolality and hyponatremia; E86.0 Dehydration; Z79.01 Long term (current) use of anticoagulants; K80.70 Calculus of gallbladder and bile duct without cholecystitis without obstruction; M47.16 Other spondylosis with myelopathy, lumbar region; I10 Essential (primary) hypertension; G43.909 Migraine, unspecified, not intractable, without status migrainosus; E78.5 Hyperlipidemia, unspecified; E89.0 Postprocedural hypothyroidism; G25.0 Essential tremor; Z85.850 Personal history of malignant neoplasm of thyroid; K57.30 Diverticulosis of large intestine without perforation or abscess without bleeding; I47.1 Supraventricular tachycardia
CPT/HCPCS: 71046; 74176; 80053; 80069; 81003; 84484; 85025; 85610; 86900; 86901; 87086; 87641; 93005; 94640; 94799; 99281; 99285; J2405; J7030